=== PATIENT | male | born 1960 | race African-American/Black ===

== ENCOUNTER 2019-08-15 11:59 | Inpatient (IN) ==
[2019-08-15 13:22] LABS: BASO# 0.02 X1000 (0.0-0.2); BASO% 0.1 % (0.0-0.8); EOS# 0.12 X1000 (0.0-0.7); EOS% 0.8 % (0.0-10.0); HEMATOCRIT 34.5 % (42.0-52.0); HEMOGLOBIN 10.1 g/dL (14.0-18.0); IMM GRAN# 0.02 X1000 (0.0-0.04); IMM GRAN% 0.1 % (0.0-0.5); LYMPH# 1.13 X1000 (1.2-3.4); LYMPH% 7.9 % (20.5-51.1); MCH 26.2 PG (27-31); MCHC 29.3 g/dL (33-37); MCV 89.4 FL (81-99); MONO# 0.97 X1000 (0.11-0.59); MONO% 6.8 % (1.7-9.3); NEUT# 11.98 X1000 (1.4-6.5); NEUT% 84.3 % (42.2-75.2); PLT 427 X1000 (130-400); RBC 3.86 XMIL (4.7-6.1); RDW 14.7 % (11.5-14.5); WBC 14.24 X1000 (4.8-10.8)
[2019-08-15 13:57] LABS: ALB/GLOB RATIO 0.7; ALBUMIN 3.1 g/dL (3.5-5.0); CALCIUM 9.7 mg/dL (8.8-10.2); POTASSIUM 4.2 mmol/L (3.5-5.1); TOTAL BILIRUBIN 0.37 mg/dL (0.20-1.00); TOTAL PROTEIN 7.4 g/dL (6.3-8.3)
[2019-08-15 14:01] LABS: CREATININE 7.5 mg/dL (0.7-1.2)
[2019-08-15 14:24] LABS: SED RATE 118 mm/hr (0-15)
[2019-08-15] MEDS ORDERED: ZOSYN 2.25 GM in NS 50 ML IV ONE (14:35)
--- NOTE | 2019-08-15 14:39 | PROVIDER DOCUMENTATION ---
This chart was entered by Yolanda Rawls Scribe, acting as scribe for Mayte Swift MD. HPI-General Adult - General Chief Complaint: Extremity Injury Stated Complaint: NECROTIC TOE Time Seen by Provider: 08/15/19 12:01 Source: patient, old records Allergies/Adverse Reactions: Patient Allergies Allergy/AdvReac Type Severity Reaction Status Date / Time ciprofloxacin [From Cipro] AdvReac NAUSEA/VOMI Verified 08/15/19 12:54 TING Home Medications: Home Medication List Medication Instructions Recorded Confirmed Last Taken Type Tramadol/APAP [Ultracet 1 ea PO Q12HR PRN #10 tab 10/30/18 Unknown Rx 37.5MG/325Mg] Gabapentin [Neurontin] 100 mg PO BID PRN #10 cap 11/23/18 Unknown Rx Gabapentin [Neurontin] 100 mg PO BID #60 cap 12/07/18 08/15/19 Unknown Rx Sulfamethoxazole/Trimethoprim 1 ea PO BID #14 tab 08/08/19 Unknown Rx [Bactrim Ds Tablet] - History of Present Illness -Gen Adult Nature of Presenting Problems: 59 y/o male presents to ED with 5th digit of L foot pain onset 6 weeks ago. 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 Pt states several people have dropped him or hit his toe while carrying him over the past few weeks. Pt reports his toe was crushed recently and it is not healing. Pt states home health is involved. Pt denies any other symptoms. Pt is alert and oriented. [facility] Location of Pain/Injury: reports: other (5th digit of L foot) Pain Radiation: reports: no radiation Quality of Pain: reports: aching Severity: reports: moderate Onset/Duration: reports: other (6 weeks ago) Timing: reports: still present Context/Activities at Onset: reports: none Modifying Factors: improves with: nothing Associated Symptoms: reports: other (necrosis of 5th digit of L foot) Similar Symptoms Previously?: No Recently seen or treated by another doctor?: Yes (ED) Review of Systems - Adult - REVIEW OF SYSTEMS - ADULT Constitutional: denies: chills, fever Eyes: reports: no symptoms reported Ears, Nose, Mouth & Throat: reports: no symptoms reported Cardiovascular: denies: chest pain, palpitations Respiratory: denies: cough, shortness of breath Gastrointestinal: reports: no symptoms reported Genitourinary: reports: no symptoms reported Musculoskeletal: reports: other (necrosis of 5th digit of L foot). denies: back pain, joint pain Integumentary: reports: no symptoms reported Neurological: reports: no symptoms reported Psychiatric: reports: no symptoms reported Endocrine: reports: no symptoms reported Hematologic/Lymphatic: reports: no symptoms reported Allergic/Immunologic: reports: no symptoms reported All Other Systems: Reviewed and Negative Past History - Adult - PAST MEDICAL HISTORY-ADULT Review of Records: reports: Old Records Reviewed, Nursing Assessment Review, Medications Reviewed Major Childhood Illnesses: reports: denies history Cardiovascular: reports: cardiac disease, CHF, HTN, pericardial disease Respiratory: reports: denies history Gastrointestinal: reports: denies history Obstetrical/Gynecological: reports: denies history Genitourinary: reports: dialysis, kidney disease Musculoskeletal: reports: denies history Neurological: reports: denies history Endocrine/Immune: reports: Diabetes Other Conditions: reports: denies history - PRIOR SURGERIES/PROCEDURES Surgical/Procedure History: reports: orthopedic (extremity) (R BKA), other (kidney transplant; AV grafts; pericardial window) - IMMUNIZATION STATUS Childhood Immunizations: See Nurse Assessment Flu Vaccine: See Nurse Assessment - FAMILY HISTORY Family History: reviewed, not pertinent - SOCIAL HISTORY Smoking: non-smoker Substance Use: none/never Alcohol Use Frequency: never Living Situation: family Physical Exam-General - PHYSICAL EXAM-ADULT Initial Vital Signs Reviewed: Yes - CONSTITUTIONAL General Appearance: appears well, alert, no apparent distress, other (chronically ill appearing) - EYES Eyes: PERRL/EOMI - HEAD, EARS, NOSE, MOUTH & THROAT HENMT: normocephalic/atraumatic - NECK Neck: non-tender, full range of motion - RESPIRATORY Respiratory: chest non-tender, lungs clear, normal breath sounds, no respiratory distress, no accessory muscle use - CARDIOVASCULAR Cardiovascular: regular rate, rhythm, no murmur - GASTROINTESTINAL (ABDOMEN) Abdominal Exam: normal bowel sounds, non tender, soft - MUSCULOSKELETAL Back Exam: normal inspection, no vertebral tenderness Extremity: other (R BKA) - SKIN Integumentary: normal color, warm/dry, other (wound to L lateral heel- pt states it is improving; necrotic 5th digit of L foot; wounds are foul-smelling) - NEUROLOGIC Neurologic: grossly normal - PSYCHIATRIC Psych/Mental Status: normal mood/affect, normal thought content, normal thought process, oriented x 3 Progress - PLAN OF CARE/RESULTS Progress/Plan/Lab Results: Vital Signs - 8 hr 08/15/19 12:12 Temperature 99.7 F H Pulse Rate 68 Respiratory Rate 18 Blood Pressure 182/82 O2 Sat by Pulse Oximetry 100 Orders Category Date Time Status FOOT 2 VIEWS LEFT [RAD] Stat Exams 08/15/19 12:31 Ordered BLOOD CULTURE [BLDCUL] Stat Lab 08/15/19 12:46 Ordered CBC WITH ELECTRONIC DIFF [HEME] Stat Lab 08/15/19 12:46 Results COMPREHENSIVE METABOLIC PANEL [CHEM] Stat Lab 08/15/19 12:46 Received CRP HIGH SENSITIVITY Stat Lab 08/15/19 12:46 Received LACTATE, PLASMA [CHEM] Stat Lab 08/15/19 12:46 Received SED RATE [HEME] Stat Lab 08/15/19 12:46 Results Pt was seen in ED on 08/08/19 and had L foot x-ray. Report is below. [facility] - [address] [place], [place] [id number] [facility] - [address] [place] [address] Department of Imaging Patient: CLINT MARIE ADM Date: 08/08/19 MR#: [id number] : 1960 ADM Status: PRE ER Age/Sex: 59/M Room/Bed: Loc: ED Ordering Physician: Vivek Maynard Family Physician: None,PCP Reason for Procedure: injury to lateral side Signed FOOT COMPLETE LEFT - 08/08/2019 INDICATION: injury to lateral side TECHNIQUE: Three views COMPARISON: None FINDINGS: Bones are intact and normally aligned. There are moderate degenerative heel spurs. There is extremely severe peripheral arterial disease, with vascular calcification of all the arteries of the ankle and foot. IMPRESSION: No acute injury. Electronically signed by Marcio Frazier 08/08/2019 3:15 PM 08/08/19 4731 Interpreting Physician: Marcio Frazier MD Dictated Date/Time: 08/08/19 4857 cc: Vivek Maynard; None,PCP Laboratory Tests 08/15/19 08/15/19 08/15/19 12:46 12:46 12:46 WBC 14.24 H RBC 3.86 L Hgb 10.1 L Hct 34.5 L MCV 89.4 MCH 26.2 L MCHC 29.3 L RDW Std Deviation 14.7 H Plt Count 427 H MPV 9.0 Immature Gran % (Auto) 0.1 Neut % (Auto) 84.3 H Lymph % (Auto) 7.9 L [place] % (Auto) 6.8 Eos % (Auto) 0.8 Baso % (Auto) 0.1 Immature Gran # (Auto) 0.02 Neut # (Auto) 11.98 H Lymph # (Auto) 1.13 L [place] # (Auto) 0.97 H Eos # (Auto) 0.12 Baso # (Auto) 0.02 ESR 118 H Sodium 137 Potassium 4.2 Chloride 92 L Carbon Dioxide 26 Anion Gap 19 BUN 30 H Creatinine 7.5 H Estimated GFR/1.73 m2 9 BUN/Creatinine Ratio 4 Glucose 79 Calculated Osmolality 279 Calcium 9.7 Total Bilirubin 0.37 AST 24 ALT 16 Alkaline Phosphatase 102 C-React Prot High Sens > 10.000 Total Protein 7.4 Albumin 3.1 L Globulin 4.3 Albumin/Globulin Ratio 0.7 Plasma Lactate 08/15/19 12:46 WBC RBC Hgb Hct MCV MCH MCHC RDW Std Deviation Plt Count MPV Immature Gran % (Auto) Neut % (Auto) Lymph % (Auto) [place] % (Auto) Eos % (Auto) Baso % (Auto) Immature Gran # (Auto) Neut # (Auto) Lymph # (Auto) [place] # (Auto) Eos # (Auto) Baso # (Auto) ESR Sodium Potassium Chloride Carbon Dioxide Anion Gap BUN Creatinine Estimated GFR/1.73 m2 BUN/Creatinine Ratio Glucose Calculated Osmolality Calcium Total Bilirubin AST ALT Alkaline Phosphatase C-React Prot High Sens Total Protein Albumin Globulin Albumin/Globulin Ratio Plasma Lactate 1.2 Patient seen in the ED just about 1 week ago for similar complaints. Foot XR negative for osteo at that time. WBC 14k and CRP >10k. Sed pending and blood cultures pending. He has a poor living situation and likely needs placement. Spoke to [place] transfer center who is on diversion. Spoke to hospitalist here who accepted patient for admission. Wanted Dr John murillo to decide on antibiotics. Dr Lopez paged. Further orders to be placed by their team. Result Diagrams: 08/15/19 12:46 08/15/19 12:46 - CONSULTS/PCP/HOSPITALIST Notification #1 *Consult/PCP/Hospitalist*: YOVANNY Corrales for hospitalist Time Discussed: 14:34 Reason/Comments: Necrosis of L 5th toe Consult Disposition: Admit #2 Consult: [place] Time Discussed: 14:15 (On diversion) #3 Consult: Dr. Dwyer Time Discussed: 14:51 Consult Disposition: other (Recommends zosyn 3.375g q12h, and Vanc 1g with dialysis, first dose now.) Departure - Departure Date of Disposition Decision: 08/15/19 Time of Disposition Decision: 14:35 DIAGNOSIS: Necrotic toes, Chronic ulcer of left heel, ESRD (end stage renal disease) Disposition: ADMITTED INPATIENT 09 Certified Medical Emergency: Emergent Condition: Stable Referrals and Follow-Ups: None,PCP [Primary Care Provider] - - Critical Care Note This patient required my direct & personal management of CC.: No Attestation - Physician/ SONA Attestation Patient care was provided by Advanced Practice Provider:: No The physician spent face to face time with patient:: Yes Advanced Practice Provider documentation review:: Supervising physician onsite and consulted in the evaluation and care of this patient. The physician did have a face to face encounter with the patient. This chart was documented by the indicated scribe, (Yolanda Rawls, Kaylyn) and accurately reflects the services I performed and decisions made by me, Mayte Swift MD, as attested by the provider's signature.
[2019-08-15] MEDS ORDERED: VANCOMYCIN 1 GM/NS 1 GM/250 ML IVPB IV SCH (15:00)
[2019-08-15] MEDS: ZOSYN 3.375 GM in NS 50 ML IV SCH (15:00)
--- NOTE | 2019-08-15 15:33 | Diag Imaging Result Doc PS360 ---
EXAM: FOOT COMPLETE LEFT 08/15/2019 HISTORY: necrotic toe, rule out osteo TECHNIQUE: Left foot three views COMMENT: There is an apparent ulcer at the tip of the fifth toe. There is no apparent cortical erosion or periosteal reaction. There is extensive arteriosclerosis. There has been no apparent change in the regional skeleton since 08/08/2019 although the ulcer was not previously demonstrated. IMPRESSION: No definite evidence of osteomyelitis. Electronically signed by Duane Barber 08/15/2019 3:30 PM
--- NOTE | 2019-08-15 15:35 | Diag Imaging Result Doc PS360 ---
EXAM: CHEST-PORTABLE 08/15/2019 HISTORY: WBC 14k TECHNIQUE: AP portable upright at 1459 COMMENT: There is no evidence of acute cardiac or pulmonary disease. The heart size is smaller in appearance than on 11/22/2018. IMPRESSION: No acute disease. Electronically signed by Duane Barber 08/15/2019 3:32 PM
--- NOTE | 2019-08-15 17:00 | HISTORY AND PHYSICAL ---
HISTORY OF PRESENT ILLNESS: Mr. Masterson is a 59-year-old, black male. He lives, I think in [place]. He lives in an upstairs apartment. He has people who help him. Apparently, about four months ago, he said when he was being carried upstairs, he hit his foot and then re-injured it again about a month ago. It is the left foot, the 4th and 5th toes, and now there is an anaerobic smell, swelling over the anterior foot, and it is starting to have some drainage. PAST MEDICAL HISTORY: 1. Right [id number] amputation. I think that was for a foot injury, peripheral vascular disease. 2. He is on dialysis for end-stage renal disease, chronic kidney disease stage 5D. 3. History of hypertension. 4. Hypercholesterolemia. ALLERGIES: Ciprofloxacin. HOME MEDICATIONS: He takes medication for peripheral neuropathy, so he is on Neurontin 100 mg b.i.d. He has been on some Bactrim 1 twice a day and he takes Ultracet for pain. FAMILY HISTORY: Positive for peripheral vascular disease and hypertension. SOCIAL HISTORY: No illicit drugs. He reports he does not drink much alcohol and is not smoking at this time. He has a past medical history of smoking. REVIEW OF SYSTEMS: He is not aware of any weight gain or loss. No fever or chills.HEENT: Unremarkable. Respiratory: No increased work of breathing or dyspnea. Cardiovascular: No chest pain or tachy palpitation. Gastrointestinal: No change in bowel or bladder habits. Musculoskeletal/Neurologic: No significant complaints. PHYSICAL EXAMINATION: VITAL SIGNS: Temperature 99.7 degrees, pulse 68, respirations 18, blood pressure 182/82. Weight 120 pounds, height 5 feet 7 inches. EYES: Pupils are equal and round. LUNGS: Clear in all lung regalado. CARDIOVASCULAR: Regular rhythm and rate without murmur or S3. ABDOMEN: Soft. SKIN: Warm and dry. EXTREMITIES: No sign of pedal edema. Status post right [id number] amputation. Left foot 4th and 5th toes and inner digital spaces, as well with swelling and appears to have crusted drainage on the anterior portion of the foot. The general dorsum of the foot is swollen. ASSESSMENT AND PLAN: 1. Foot ulcer with peripheral vascular disease. We will get Surgery to evaluate and get Wound Care to help. We are going to start him on broad-spectrum antibiotics. We will see if they can culture the wound and send it for culture, anaerobic and Gram stain. We are going to start him on Zosyn and vancomycin to cover for gram-positive, gram-negative, and some anaerobe coverage. 2. Stage 5D chronic kidney disease, on dialysis on Tuesdays, , and Saturdays. Dr. Lopez will be involved. His volume status looks good. His electrolytes and acid-base status look good. 3. His blood counts look good. He has a mild normocytic anemia. Hematocrit was 34, hemoglobin 10. Nutrition looks good. cc: Caesar Locke MD
[2019-08-15] MEDS: NEURONTIN PO SCH (20:25)
[2019-08-15] MEDS: HEPARIN SUBQ SCH (20:25)
[2019-08-15] MEDS: TYLENOL PO PRN (23:49)
[2019-08-16] MEDS: ZOSYN 3.375 GM in NS 50 ML IV SCH ×2 (03:28→18:14)
[2019-08-16 07:47] LABS: BASO# 0.04 X1000 (0.0-0.2); BASO% 0.4 % (0.0-0.8); EOS# 0.17 X1000 (0.0-0.7); EOS% 1.5 % (0.0-10.0); HEMATOCRIT 35.7 % (42.0-52.0); HEMOGLOBIN 10.2 g/dL (14.0-18.0); IMM GRAN# 0.02 X1000 (0.0-0.04); IMM GRAN% 0.2 % (0.0-0.5); LYMPH# 1.03 X1000 (1.2-3.4); LYMPH% 9.4 % (20.5-51.1); MCHC 28.6 g/dL (33-37); MCV 91.1 FL (81-99); MONO# 0.74 X1000 (0.11-0.59); MONO% 6.7 % (1.7-9.3); MPV 8.9 FL (7.4-10.4); NEUT# 8.98 X1000 (1.4-6.5); NEUT% 81.8 % (42.2-75.2); PLT 408 X1000 (130-400); RBC 3.92 XMIL (4.7-6.1); RDW 14.9 % (11.5-14.5); WBC 10.98 X1000 (4.8-10.8)
[2019-08-16 08:15] LABS: ALB/GLOB RATIO 0.8; ALBUMIN 3.2 g/dL (3.5-5.0); CALCIUM 9.5 mg/dL (8.8-10.2); TOTAL BILIRUBIN 0.49 mg/dL (0.20-1.00); TOTAL PROTEIN 7.4 g/dL (6.3-8.3)
[2019-08-16 08:20] LABS: CREATININE 8.9 mg/dL (0.7-1.2)
[2019-08-16 08:35] LABS: FREE T4 1.49 ng/dL (0.93-1.70); TSH 1.08 uIUmL (0.27-4.20)
[2019-08-16 08:43] LABS: HYPOCHROM 1+; LYMPHS 10 % (21-51); SEGS 90 % (42-75)
[2019-08-16] MEDS ORDERED: HEPARIN IV PRN (09:28)
[2019-08-16] MEDS ORDERED: NS 2,000 ML MISC PRN (09:28)
[2019-08-16] MEDS ORDERED: TIGHT: 0.2 ML/HR FOR DIALYSIS MISC PRN (09:28)
[2019-08-16] MEDS: HEPARIN SUBQ SCH ×2 (10:12→20:36)
[2019-08-16] MEDS: NEURONTIN PO SCH ×2 (10:12→20:36)
[2019-08-16] MEDS: TYLENOL PO PRN (11:00)
--- NOTE | 2019-08-16 13:18 | PROGRESS NOTE ---
DATE: 08/16/2019 Mr. Masterson is mainly complaining of kind of muscle pain on the left leg posterior hamstring, but he had a pretty good night. There is still an anaerobic smell he can smell from his foot and the drainage ulceration, skin ulceration in the left foot dorsum of his foot, ulcer between the 4th and 5th toe. OBJECTIVE: Temperature is 98 degrees, pulse is 60, respirations 15, blood pressure 140/56. Pupils are equal and round. Lungs are clear in all lung regalado. Cardiovascular regular rate without murmur or S3. Abdomen is soft. Skin is warm and dry. His foot x-ray, no definite evidence of osteomyelitis. ASSESSMENT AND PLAN: 1. Foot ulcer, peripheral vascular disease. Continue his Zosyn and vancomycin. Cultures pending. 2. Stage 5D chronic kidney disease. Continue dialysis Sunday, , and Sunday. His volume status looks good. We will give him his vancomycin after dialysis. 3. Mild normocytic anemia. Electrolytes unremarkable. Acid-base status good. I am going to try a muscle relaxer, see if it helps that left posterior hamstring. cc: Caesar Locke MD
[2019-08-16] MEDS: ROBAXIN PO SCH ×2 (13:46→18:14)
--- NOTE | 2019-08-16 15:29 | NEPHROLOGY CONSULTATION ---
DATE: 08/16/2019 REASON FOR CONSULTATION: CKD 5D. Evaluate and treat. HISTORY OF PRESENT ILLNESS: Mr. Masterson is a 59-year-old, man with longstanding dialysis dependent CKD. He also has peripheral vascular disease, hypertension, peripheral neuropathy. He dialyzes Sunday, , Sunday at the clinic in [place]. He lives in [place]. He has undergone right AKA in the past and he lives in a 2nd floor apartment where he required assistance to get up and down the stairs in order to go to dialysis. He states he has had at least 2 episodes in the recent past where he struck his foot against the wall as he is going up and down the stairs with the assistance of friends. He has pain in the left 5th toe and also ischemic appearance with darkening and desiccation in the tissue. He came to the emergency room because of worsening pain, malodorous discharge. No chills, fever, sweats, night sweats etc. He had his routine dialysis on . PAST MEDICAL HISTORY: As above. HOME MEDICATIONS: Include Ultracef, gabapentin, Bactrim, amlodipine, aspirin, atenolol, atorvastatin, pantoprazole, quetiapine ALLERGIES: Ciprofloxacin. SOCIAL HISTORY: As above. FAMILY HISTORY AND REVIEW OF SYSTEMS: Noncontributory. PHYSICAL EXAMINATION: Vital Signs: Blood pressure 140/56, heart rate 63, respirations 15, afebrile. General: Chronically ill-appearing man who appears older than stated age. No acute distress. Skin: Warm and dry. HEENT: Conjunctivae are pink. Pupils are equal. Oropharynx is clear. Neck: Supple. Neck veins are not distended. Heart: PMI is enlarged. Auscultation demonstrates a regular rhythm. No gallops or murmurs. Lungs: Have equal excursion, equal breath sounds. No crackles or wheezes. Abdomen: Soft, nontender. Bowel sounds present. Extremities: No edema, clubbing or cyanosis. Left 5th toe is mummified but there is purulent malodorous drainage between the 4th and 5th toe. He also has fluctuant bullae around the proximal and medial aspect of the left 1st toenail. IMPRESSION: 1. Chronic kidney disease 5D. We will perform his routine hemodialysis today. A 3 K bath. We will use his outpatient dry weight. 2. Electrolytes/acid base/anemia./blood pressure all in target. 3. Foot infection. Vancomycin and Zosyn. Dosing is appropriate. cc: Burke Lopez MD MTDD
--- NOTE | 2019-08-16 16:40 | GENERAL SURGERY CONSULTATION ---
DATE: 08/16/2019 REASON FOR CONSULTATION: Foot ulcer. SURGEON CONSULT: Jeff Shannon. REQUESTING PHYSICIAN: Dr. Locke. HISTORY OF PRESENT ILLNESS: This is a 59-year-old male with known peripheral arterial disease status post right AKA who reports falling and hitting his left foot a few weeks ago. He has had progressive swelling, discoloration and dryness of his left 5th toe with foul odor and drainage. He presented to the emergency room with these complaints. No exacerbating or relieving factors. No fever, chills, or other systemic complaints. PAST MEDICAL HISTORY: Peripheral arterial disease, end-stage renal disease, hypertension, hypercholesterolemia. PAST SURGICAL HISTORY: Right AKA, right arm and left arm fistula placement. ALLERGIES: Ciprofloxacin. HOME MEDICATIONS: Neurontin, Bactrim, Ultracet. FAMILY HISTORY: Reviewed and positive for peripheral arterial disease and hypertension. SOCIAL HISTORY: No illicit drug use. He does drink alcohol but not heavily. He denies smoking but he does have a history of smoking. REVIEW OF SYSTEMS: Ten systems reviewed and negative except as noted above. PHYSICAL EXAMINATION: Vital Signs: Temperature 98 degrees, pulse 63, respirations 15, blood pressure 140/56, O2 saturation 100%. General: Chronically ill-appearing male who looks older than stated age in no acute distress. HEENT: Normocephalic, atraumatic. Extraocular muscles intact. Pupils equal, round, reactive to light. Sclerae anicteric. Moist mucous membranes. Neck: Supple. No thyromegaly. CV: Regular rate and rhythm. Respiratory: Bilateral breath sounds. No work of breathing. GI: Soft, nontender, nondistended. No organomegaly or mass. Extremities: He has a right upper arm AV fistula with large pseudoaneurysms. He has a left upper arm AV fistula with a thrill. His right AKA is intact. His left foot, however, has swelling and dry gangrene of the 5th toe with some open wounds and fluctuance around the base of the metatarsophalangeal joint. There is some odor as well. I cannot palpate pedal pulses. IMAGING: Foot x-ray revealed no definite osteomyelitis but there is extensive arterial sclerosis. ASSESSMENT AND PLAN: A 59-year-old male with peripheral vascular disease and nonhealing left 5th toe ulcer. He now has a foot infection. I agree with Zosyn and vancomycin. Cultures are pending. We will get a vascular workup to determine our surgical approach. cc: Jeff Shannon MD
[2019-08-16] MEDS ORDERED: VANCOMYCIN 1 GM/NS 1 GM/250 ML IVPB IV ONE (17:00)
[2019-08-16] MEDS: ULTRACET 37.5MG/325MG PO PRN (20:56)
[2019-08-17] MEDS: EMLA CREAM TOP PRN (01:17)
[2019-08-17] MEDS: ZOSYN 3.375 GM in NS 50 ML IV SCH ×2 (02:47→17:06)
[2019-08-17 05:43] LABS: BASO# 0.04 X1000 (0.0-0.2); BASO% 0.3 % (0.0-0.8); EOS# 0.26 X1000 (0.0-0.7); EOS% 2.1 % (0.0-10.0); HEMATOCRIT 32.3 % (42.0-52.0); HEMOGLOBIN 9.4 g/dL (14.0-18.0); IMM GRAN# 0.02 X1000 (0.0-0.04); IMM GRAN% 0.2 % (0.0-0.5); LYMPH# 1.05 X1000 (1.2-3.4); LYMPH% 8.3 % (20.5-51.1); MCH 26.4 PG (27-31); MCHC 29.1 g/dL (33-37); MCV 90.7 FL (81-99); MONO# 1.15 X1000 (0.11-0.59); MONO% 9.1 % (1.7-9.3); MPV 8.8 FL (7.4-10.4); NEUT# 10.16 X1000 (1.4-6.5); PLT 434 X1000 (130-400); RBC 3.56 XMIL (4.7-6.1); RDW 14.9 % (11.5-14.5); WBC 12.68 X1000 (4.8-10.8)
[2019-08-17 06:39] LABS: ALB/GLOB RATIO 0.7; ALBUMIN 3.1 g/dL (3.5-5.0); CALCIUM 9.2 mg/dL (8.8-10.2); MAGNESIUM 1.9 mg/dL (1.5-2.7); POTASSIUM 3.7 mmol/L (3.5-5.1); TOTAL BILIRUBIN 0.44 mg/dL (0.20-1.00); TOTAL PROTEIN 7.3 g/dL (6.3-8.3)
[2019-08-17 06:54] LABS: CREATININE 5.5 mg/dL (0.7-1.2)
[2019-08-17] MEDS: ULTRACET 37.5MG/325MG PO PRN ×2 (09:37→22:10)
[2019-08-17] MEDS: NEURONTIN PO SCH ×2 (09:37→22:09)
[2019-08-17] MEDS: HEPARIN SUBQ SCH ×2 (09:38→22:09)
[2019-08-17] MEDS: ROBAXIN PO SCH ×3 (09:38→17:06)
--- NOTE | 2019-08-17 10:06 | GENERAL SURGERY PROGRESS NOTE ---
DATE: 08/17/2019 SUBJECTIVE: The patient has no new complaints overnight. OBJECTIVE: Vital Signs: He is afebrile. Vital signs are stable. General: He is awake, alert, and oriented x3. No acute distress. Extremities: His left foot remains the same with dry gangrene of the 5th toe and some foul drainage around the 4th and 5th toe base. ASSESSMENT AND PLAN: A 59-year-old male with severe peripheral arterial disease and now infected foot wound. There is dry gangrene of the 5th toe. We are going to get a lower extremity arterial study tomorrow and possibly CT angiogram. However, I suspect he may just need another BKA or AKA. We will discuss with Dr. Chong tomorrow. cc: Jeff Shannon MD
--- NOTE | 2019-08-17 13:18 | PROGRESS NOTE ---
DATE: 08/17/2019 SUBJECTIVE: Mr. Masterson is feeling better. His foot feels a little bit better. Will put him back on his home medications and his eyedrops. OBJECTIVE: Vital Signs: Temperature 97.7 degrees, pulse 65, respirations 15, blood pressure 141/57. HEENT: Pupils are equal and round. Lungs: Clear in all lung regalado. Cardiovascular: Regular rhythm and rate without murmur or S3. Abdomen: Soft. Skin: Warm and dry. ASSESSMENT AND PLAN: 1. He has peripheral artery disease, now infected foot wound, gangrene of the fifth toe. We will get a lower extremity arterial study, possible CT angiogram tomorrow, and see what he needs. He may need a below-knee amputation or above-knee amputation. 2. Chronic kidney disease stage 5D. Continue hemodialysis. I think he is Tuesdays, , and Saturdays. 3. Electrolytes and acid base look good. 4. Anemia, stable. He has a mild normocytic anemia. 5. Nutrition appears good. Good oral intake. REVIEW OF ORDERS: I do not see any change. He is on vancomycin and Zosyn. LABORATORY DATA: Today, sodium 135, potassium 3.7, chloride 93, BUN 20, creatinine 5.5. CBC: White count 12,680, hematocrit 32, hemoglobin 9.4, platelet count 434,000. cc: Caesar Locke MD
[2019-08-17] MEDS: ALPHAGAN 0.2% OPHTH SOLN BOTH EYES SCH ×2 (15:04→17:06)
[2019-08-17] MEDS: DEPAKOTE PO SCH ×2 (17:06→22:12)
[2019-08-17] MEDS ORDERED: NEURONTIN PO SCH (21:00)
[2019-08-17] MEDS: SEROQUEL PO PRN (22:09)
[2019-08-18] MEDS ORDERED: CALMOSEPTINE OINTMENT TOP PRN (00:05)
[2019-08-18] MEDS: ZOSYN 3.375 GM in NS 50 ML IV SCH ×2 (02:39→15:44)
[2019-08-18 06:21] LABS: BASO# 0.04 X1000 (0.0-0.2); BASO% 0.4 % (0.0-0.8); EOS% 2.7 % (0.0-10.0); HEMOGLOBIN 8.6 g/dL (14.0-18.0); IMM GRAN# 0.05 X1000 (0.0-0.04); IMM GRAN% 0.4 % (0.0-0.5); LYMPH# 1.46 X1000 (1.2-3.4); LYMPH% 13.1 % (20.5-51.1); MCH 26.1 PG (27-31); MCHC 28.7 g/dL (33-37); MCV 90.9 FL (81-99); MONO% 9.9 % (1.7-9.3); MPV 8.7 FL (7.4-10.4); NEUT# 8.19 X1000 (1.4-6.5); NEUT% 73.5 % (42.2-75.2); PLT 444 X1000 (130-400); RDW 14.9 % (11.5-14.5); WBC 11.14 X1000 (4.8-10.8)
[2019-08-18 06:48] LABS: ALB/GLOB RATIO 0.8; ALBUMIN 2.9 g/dL (3.5-5.0); CALCIUM 9.2 mg/dL (8.8-10.2); MAGNESIUM 1.8 mg/dL (1.5-2.7); TOTAL BILIRUBIN 0.37 mg/dL (0.20-1.00); TOTAL PROTEIN 6.7 g/dL (6.3-8.3)
[2019-08-18 07:02] LABS: CREATININE 7.9 mg/dL (0.7-1.2)
[2019-08-18] MEDS: ALPHAGAN 0.2% OPHTH SOLN BOTH EYES SCH ×2 (09:09→21:56)
[2019-08-18] MEDS: NEURONTIN PO SCH ×2 (09:09→21:57)
[2019-08-18] MEDS: ROBAXIN PO SCH ×3 (09:10→16:20)
[2019-08-18] MEDS: HEPARIN SUBQ SCH ×2 (09:10→21:58)
[2019-08-18] MEDS: DEPAKOTE PO SCH ×4 (09:10→21:56)
[2019-08-18 09:55] LABS: HEPATITIS PROFILE ACUTE SEE COMMENTS
--- NOTE | 2019-08-18 13:55 | NEPHROLOGY PROGRESS NOTE ---
DATE: 08/18/2019 Date Seen: 08/18/2019 Time Seen: 07:30 SUBJECTIVE: Mr. Masterson is resting quietly in bed. Head of the bed is slightly elevated. States that he has dry eyes and has requested some saline from the nurses. OBJECTIVE: Vital Signs: Temperature 98.4 degrees blood pressure 109/41, heart rate 60, respirations 18. He is on room air. Last recorded saturation 100%. He has had 580 in he has had 0 recorded out. LABORATORY DATA: Sodium is 141, potassium 4, chloride 95, CO2 26, BUN 28, creatinine 7.9, glucose is 87. His anion gap is 20. His calcium 9.2, albumin 2.9. White count 11.14, hemoglobin 8.6, hematocrit 30, platelet count 444,000. The patient has positive blood cultures of gram-positive cocci with gram-negative rods. First culture results as an enterococci faecalis with Morganella staph Morgagni This is to the wound. PHYSICAL EXAMINATION: General: This is a 59-year-old male. He is sitting up on the side of the bed. He is currently denying any chest pain no increased work of breathing. HEENT: Normocephalic, atraumatic. Conjunctiva is pale pink. He has KRISTEN. Mucous membranes are dry. Neck: Supple. Trachea midline. He has positive JVD. Cardiovascular: He is regular rate and rhythm. PMI slightly enlarged. No murmur or gallop. Lungs: Clear to auscultation bilaterally. Equal excursion on room air. Abdomen: Soft, nontender, positive bowel sounds. Genitourinary: Not inspected. Minimal void with dialysis assist. Extremities: He has a right AKA with a left 5th toe that is currently draining purulent drainage between the 4th in the 5th toe. Questionable bullae is draining out on the left 1st toenail. No edema present. Neurological: Alert and oriented x3. ASSESSMENT AND PLAN: 1. Chronic kidney disease stage 5D. The patient is due for his hemodialysis treatment in the a.m. He dialyzes on Sunday, , Sunday. No indications for intervention today. Plan for dialysis in the a.m. 2. Electrolytes and acid-base balance. These are acceptable. 3. Anemia this is low but stable. 4. Foot infection. He is currently on vancomycin and Zosyn with renal dosing. Followed by the primary care and surgeons. I would like to thank you for allowing us to follow with this patient. Dictated by YOVANNY Reardon for Burke Lopez MD Face to face encounter, data reviewed, discussed with Ruperto Chua on 08/18/19. I agree with the above assessment and plan of care. cc: YOVANNY Reardon MD [facility]
[2019-08-18] MEDS ORDERED: SEROQUEL PO PRN (17:34)
--- NOTE | 2019-08-18 17:56 | PROGRESS NOTE ---
DATE: 08/18/2019 SUBJECTIVE: Mr. Masterson is feeling better. He would like to get his eye drops restarted, but he is eating well. He remains afebrile. OBJECTIVE: Vital signs: Temperature 98.6 degrees, pulse 70, respirations 16, blood pressure 160/71. HEENT: Pupils are equal and round. Lungs: Clear in all lung regalado. Cardiovascular: Regular rhythm and rate without murmur or S3. Abdomen: Soft. Skin: Warm and dry. LABORATORY: I reviewed lab from yesterday. ASSESSMENT AND PLAN: 1. Chronic kidney disease stage 5D. Getting his routine hemodialysis. His volume status, electrolytes, and acid base look good. Anemia is low but stable. 2. Foot infection. We will get vascular studies. Currently he is on vancomycin and Zosyn. We will see if we can get him back on his eye drops. 3. Reviewed his orders. I do not see any other change. cc: Caesar Locke MD
[2019-08-18] MEDS ORDERED: ALPHAGAN 0.2% OPHTH SOLN OPH SCH (21:00)
[2019-08-18] MEDS: LIPITOR PO SCH (21:56)
[2019-08-18] MEDS: ASPIRIN PO SCH (21:57)
[2019-08-18] MEDS: TENORMIN PO SCH (21:57)
[2019-08-18] MEDS: PROTONIX PO SCH (21:57)
--- NOTE | 2019-08-19 01:35 | GENERAL SURGERY PROGRESS NOTE ---
DATE: 08/18/2019 SUBJECTIVE: The patient feels better. OBJECTIVE: He is afebrile. Vital signs are stable.General: He is awake, alert, oriented x3. No acute distress. He is sitting up eating supper. Extremities: The left foot was examined, the 5th toe remains desiccated. There is some fluctuance around the metatarsophalangeal joint. There is a proximal lateral left foot dry ulcer. IMAGING: The lower extremity arterial study was reviewed, which shows very poor flow in the digital arteries; however, there is pulsatile flow down to the ankle. ABIs could not be obtained however due to elevated pressures diffusely in the left leg. 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 We will pursue CT angiogram of the aorta with runoff of the left leg tomorrow to look for any salvage procedures of this foot. cc: Jeff Shannon MD
[2019-08-19] MEDS: ZOSYN 3.375 GM in NS 50 ML IV SCH (02:54)
[2019-08-19 05:39] LABS: BASO# 0.05 X1000 (0.0-0.2); BASO% 0.4 % (0.0-0.8); EOS# 0.35 X1000 (0.0-0.7); EOS% 2.9 % (0.0-10.0); HEMATOCRIT 29.7 % (42.0-52.0); HEMOGLOBIN 8.7 g/dL (14.0-18.0); IMM GRAN# 0.04 X1000 (0.0-0.04); IMM GRAN% 0.3 % (0.0-0.5); LYMPH# 1.87 X1000 (1.2-3.4); LYMPH% 15.6 % (20.5-51.1); MCH 26.4 PG (27-31); MCHC 29.3 g/dL (33-37); MCV 90.3 FL (81-99); MONO# 0.94 X1000 (0.11-0.59); MONO% 7.9 % (1.7-9.3); MPV 8.5 FL (7.4-10.4); NEUT# 8.72 X1000 (1.4-6.5); NEUT% 72.9 % (42.2-75.2); PLT 475 X1000 (130-400); RBC 3.29 XMIL (4.7-6.1); RDW 14.9 % (11.5-14.5); WBC 11.97 X1000 (4.8-10.8)
[2019-08-19] MEDS ORDERED: HEPARIN IV PRN (06:08)
[2019-08-19] MEDS ORDERED: TIGHT: 0.2 ML/HR FOR DIALYSIS MISC PRN (06:08)
[2019-08-19] MEDS ORDERED: NS 2,000 ML MISC PRN (06:08)
[2019-08-19 07:08] LABS: ALB/GLOB RATIO 0.8; CALCIUM 8.9 mg/dL (8.8-10.2); MAGNESIUM 1.9 mg/dL (1.5-2.7); POTASSIUM 4.1 mmol/L (3.5-5.1); TOTAL BILIRUBIN 0.32 mg/dL (0.20-1.00); TOTAL PROTEIN 6.6 g/dL (6.3-8.3)
[2019-08-19 07:16] LABS: CREATININE 9.7 mg/dL (0.7-1.2)
[2019-08-19 07:51] LABS: BANDS 2 % (0-1); EOS 2 % (1-10); HYPOCHROM 1+; LYMPHS 6 % (21-51); MONO 6 % (1-9); SEGS 84 % (42-75)
[2019-08-19] MEDS: HEPARIN SUBQ SCH ×2 (10:00→21:37)
[2019-08-19] MEDS: ALPHAGAN 0.2% OPHTH SOLN BOTH EYES SCH ×2 (10:00→21:38)
[2019-08-19] MEDS: ROBAXIN PO SCH ×3 (10:00→17:52)
[2019-08-19] MEDS: NEURONTIN PO SCH ×2 (10:01→21:37)
[2019-08-19] MEDS: DEPAKOTE PO SCH ×4 (10:01→21:38)
--- NOTE | 2019-08-19 13:33 | VASCULAR LAB ---
PROCEDURE NAME: Arterial Unilateral Leg - 08/18/2019 REQUESTING PHYSICIAN: Dr. Shannon. AIRCRAFT MAINTENANCE MANAGER: Issa INDICATIONS: Left foot ulcer. FINDINGS: Segmental pressures are as follows: Right brachial greater than 250, left brachial not measured. Right leg is not measured secondary to above the knee amputation. Left side, proximal thigh greater than 250, distal thigh greater than 250, popliteal greater than 250, dorsalis pedis greater than 250, posterior tibial greater than 250, toe 22. Waveform analysis: Waveforms appear to be intact to the level of the ankle, but they are somewhat monophasic. There is essentially no waveform noted to the left toe. The patient's SIL not calculated and TBI not calculated. INTERPRETATION: Extensive peripheral vascular disease likely originating more proximally. If the patient has a left foot wound, he likely has poor potential for healing. The patient may benefit from CT angiography. cc: MD Jeff Yanez MD
--- NOTE | 2019-08-19 13:52 | PROGRESS NOTE ---
DATE: 08/19/2019 SUBJECTIVE: Mr. Masterson states his foot is throbbing, but overall feels a little better. He still has pretty strong anaerobic smell to it. No active drainage that I can appreciate. OBJECTIVE: Temperature 98.1 degrees, pulse 57, respirations 16, and blood pressure 129/35.HEENT: Pupils are equal and round. Lungs: Clear in all lung regalado. Cardiovascular: Regular rhythm and rate without murmur or S3. Abdomen: Soft. Skin: Warm and dry. ASSESSMENT AND PLAN: 1. Chronic kidney disease stage 5D. His volume status, electrolytes, and acid base look stable. Anemia is low but stable. 2. Foot infection. Plan to get vascular studies. Continue vancomycin and Zosyn. His wound cultures grew out Enterococcus and Morganella, and the Morganella is sensitive to cefepime. The Enterococcus is sensitive to vancomycin so I will probably change to cefepime and vancomycin. Notes also is sensitive to ceftriaxone so I will switch it to ceftriaxone. We will give 2 g IV q.24 hours. Continue vancomycin. Wait on vascular studies. cc: Caesar Locke MD
--- NOTE | 2019-08-19 14:26 | Diag Imaging Result Doc PS360 ---
EXAM: CT ANGIOGRAM AORTA W/RUNOFF 08/19/2019 HISTORY: severe PAD with left toe gangrene TECHNIQUE: This exam was performed using automated exposure control, adjustment of mA or kV according to patient size, and/or use of iterative reconstruction technique. COMMENT: 3-D MIPS were performed. There are no previous abdominal studies. Comparison is made with the thoracic study of 11/23/2018 where possible. There are platelike opacities in both lung bases which were also largely present at the time the previous study and are likely fibrotic in nature. There is extensive arteriosclerosis which may be related to secondary hyperparathyroidism. The left ventricle appears slightly distended. There is a small hiatal hernia. The aorta is not distended. There is apparent noncalcified plaque present in the superior mesenteric artery as well as dense ostial calcification. Both kidneys are atrophic and demonstrate multiple cysts consistent with acquired polycystic disease. There is no evidence of cholelithiasis. Some portions of the right common and external iliac arteries are partially obscured by beam hardening artifact from multiple surgical clips. Both common and external iliac arteries appear to be patent. There is dense calcific plaque with stenosis of the right common femoral artery. There is high-grade stenosis or occlusion in the distal superficial femoral and proximal popliteal arteries on the right. There has been amputation [id number] on the right side. On the left side, there is some narrowing of the superficial femoral artery proximally and dense calcification throughout most of its length. The popliteal artery is apparently patent with high-grade stenosis around image 564. There is also high-grade stenosis below this level at the level of image 588. At the level of the bifurcation of the tibioperoneal trunk is difficult to see the actual lumen of the vessels including the anterior tibial. There is fairly proximal occlusion of the posterior tibial artery. Patency of the peroneal and anterior tibial artery as it is not clear due to the dense calcification of vessel. IMPRESSION: 1. Stenosis of the proximal left superficial femoral artery. 2. Stenosis of the left popliteal artery. 3. Very poor distal runoff with dense calcification of the vessels. Electronically signed by Duane Barber 08/19/2019 2:24 PM
[2019-08-19] MEDS ORDERED: VANCOMYCIN 1 GM/NS 1 GM/250 ML IVPB IV ONE (16:00)
[2019-08-19] MEDS: ROCEPHIN 2 GM in NS 50 ML IV SCH (17:53)
[2019-08-19] MEDS: ULTRACET 37.5MG/325MG PO PRN (19:46)
--- NOTE | 2019-08-19 21:09 | PROVIDER PROGRESS NOTE ---
Progress Note Subjective: he is sitting up to the side of the bed eating breakfast. He complains of waxing and waning left foot pain that is controlled with PRN medication. Objective: vitals. Temperature 98.4, pulse 58, respirations 16, blood pressure 147/29, O2 sat 100% on room air. General: elderly -Chinese male sitting up to the side of the bed in no acute distress. HEENT: normocephalic, atraumatic, conjunctiva pale. Pupils equal and reactive. Mucous membranes moist. Trachea midline. Skin: warm and dry Neck: supple, no JVD observed Cardiovascular: S1, S2. Regular rate and rhythm no murmur gallop noted. Respiratory: diminished bilateral bases anteriorly Abdomen: soft, nontender, nondistended. Positive bowel sounds. : none inspected Extremities: right a.k.a. Dressing to the left foot in place with purulent drainage and a foul odor noted. Neurological: alert and oriented to person, place, and time. Labs: WBC 11.97, hemoglobin 8.7, hematocrit 29.7, platelet count 475, sodium 138, potassium 4.1, chloride 93, carbon dioxide 24, anion gap 21, BUN 36, creatinine 9.7. Intake 100, output 0 Impression: Chronic kidney disease stage 5D. He will have his routine hemodialysis treatment today with a 4K bath and to his dry weight. Blood pressure. Stable. Fluid volume. Euvolemic on exam. Anemia. Stable. Electrolytes and acid base balance. Stable. Corrections with hemodialysis today. PVD. He underwent CTA with runoff today.
[2019-08-19] MEDS: PROTONIX PO SCH (21:37)
[2019-08-19] MEDS: ASPIRIN PO SCH (21:38)
[2019-08-19] MEDS: TENORMIN PO SCH (21:38)
[2019-08-19] MEDS: LIPITOR PO SCH (21:38)
--- NOTE | 2019-08-20 00:48 | GENERAL SURGERY PROGRESS NOTE ---
DATE: 08/19/2019 SUBJECTIVE: The patient was seen during dialysis today. He has had no acute changes. OBJECTIVE: Vital Signs: He is afebrile. Vital signs are stable. General: He is awake, alert, oriented x3. No acute distress. Extremities: Left foot unchanged necrotic purulent wound of the left 5th toe. IMAGING: CT of the aorta and runoff of the lower extremity reveals high-grade stenosis or occlusion of the superficial femoral artery and popliteal arteries, as well as probable significant stenosis at the bifurcation of the tibioperoneal trunk, with an occluded posterior tibial artery. The peroneal and anterior tibial arteries are not clearly patent due to the calcification of the vessel. ASSESSMENT AND PLAN: A 59-year-old male with left foot toe ulcer, infection and gangrene. He has severe peripheral arterial disease with poor runoff below the knee, I think this is likely unsalvageable. I will discuss with Dr. Chong, but he will probably need above-knee amputation this admission. I have discussed this with him, he is obviously disappointed and we will reconvene tomorrow. cc: Jeff Shannon MD
[2019-08-20] MEDS: TYLENOL PO PRN (05:29)
[2019-08-20 05:33] LABS: BASO# 0.02 X1000 (0.0-0.2); BASO% 0.2 % (0.0-0.8); EOS# 0.22 X1000 (0.0-0.7); HEMATOCRIT 31.7 % (42.0-52.0); IMM GRAN# 0.04 X1000 (0.0-0.04); IMM GRAN% 0.4 % (0.0-0.5); LYMPH# 1.21 X1000 (1.2-3.4); MCH 25.6 PG (27-31); MCHC 28.4 g/dL (33-37); MCV 90.3 FL (81-99); MONO# 1.12 X1000 (0.11-0.59); MONO% 10.2 % (1.7-9.3); MPV 8.5 FL (7.4-10.4); NEUT# 8.39 X1000 (1.4-6.5); NEUT% 76.2 % (42.2-75.2); PLT 503 X1000 (130-400); RBC 3.51 XMIL (4.7-6.1); RDW 15.1 % (11.5-14.5)
[2019-08-20] MEDS ORDERED: TIGHT: 0.2 ML/HR FOR DIALYSIS MISC PRN (06:24)
[2019-08-20] MEDS ORDERED: NS 2,000 ML MISC PRN (06:24)
[2019-08-20] MEDS ORDERED: HEPARIN IV PRN (06:24)
[2019-08-20 06:37] LABS: ALB/GLOB RATIO 0.7; ALBUMIN 3.1 g/dL (3.5-5.0); CALCIUM 9.7 mg/dL (8.8-10.2); MAGNESIUM 1.9 mg/dL (1.5-2.7); POTASSIUM 4.3 mmol/L (3.5-5.1); TOTAL BILIRUBIN 0.3 mg/dL (0.20-1.00); TOTAL PROTEIN 7.3 g/dL (6.3-8.3)
[2019-08-20 06:40] LABS: CREATININE 7.1 mg/dL (0.7-1.2)
[2019-08-20] MEDS: HEPARIN SUBQ SCH ×2 (08:57→20:45)
[2019-08-20] MEDS: ROBAXIN PO SCH ×3 (08:57→17:38)
[2019-08-20] MEDS: DEPAKOTE PO SCH ×3 (08:57→20:44)
[2019-08-20] MEDS: ALPHAGAN 0.2% OPHTH SOLN BOTH EYES SCH ×2 (08:57→20:30)
[2019-08-20] MEDS: NEURONTIN PO SCH ×2 (08:57→20:44)
--- NOTE | 2019-08-20 13:40 | PROGRESS NOTE ---
DATE: 08/20/2019 SUBJECTIVE: He says his foot still throbs. He feels like the swelling is down some. I think Dr. Chong wanted to try and see if they could open up some of the arterial flow in that foot. It is likely if that is not successful he will need an amputation. EXAM: Vital Signs: Today afebrile, temperature 98.5 degrees, pulse 60, respirations 18, blood pressure 151/62. HEENT: Pupils are equal and round. Lungs: Clear in all lung regalado. Cardiovascular exam: Regular rhythm and rate without murmur or S3. CT of the aorta with runoff reveals high-grade stenosis of occlusion of superficial femoral artery and popliteal arteries, and probably significant stenosis in the bifurcation of the tibioperoneal trunk with an occluded posterior tibial artery. Continue present antibiotics. His wound cultures grew out Enterobacter and Morganella. He is currently on Lipitor 80 mg a day, Tenormin 25 mg at bedtime, gabapentin 200 mg at bedtime, Depakote 125 mg t.i.d. He also gets gabapentin 100 mg in the morning, quetiapine which is Seroquel 25 mg at bedtime p.r.n., and getting ceftriaxone and vancomycin IV. cc: Caesar Locke MD
[2019-08-20] MEDS: ROCEPHIN 2 GM in NS 50 ML IV SCH (14:00)
[2019-08-20] MEDS: ULTRACET 37.5MG/325MG PO SCH ×2 (14:02→23:49)
--- NOTE | 2019-08-20 18:02 | PROVIDER PROGRESS NOTE ---
Progress Note Subjective: Pt voices left foot pain no longer being controlled with current pain medicine. He denies any chest pain, shortness of breath, or n/v. Objective: vitals. Temperature 97.9, pulse 61, respirations 18, blood pressure 144/66, O2 sat 100% on room air. General: elderly -German male sitting up to the side of the bed in no acute distress. HEENT: normocephalic, atraumatic, conjunctiva pale. Pupils equal and reactive. Mucous membranes moist. Trachea midline. Skin: warm and dry Neck: supple, 6 cm JVD observed Cardiovascular: S1, S2. Regular rate and rhythm with a soft systolic murmur. No gallop noted. Respiratory: clear bilaterally with equal air entry anteriorly Abdomen: soft, nontender, nondistended. Positive bowel sounds. : none inspected Extremities: right a.k.a. Dressing to the left foot in place, foul odor noted Neurological: alert and oriented to person, place, and time. Labs: WBC 11, hemoglobin nine, hematocrit 31.7, platelet count 503, sodium 140, potassium 4.3, chloride 97, carbon dioxide 26, BUN 25, creatinine 7.1. Intake 0, output 1600 Impression: Chronic kidney disease stage 5D. He had his hemodialysis treatment yesterday without complications. No change in plan. Blood pressure. Stable. Fluid volume. Euvolemic on exam. Anemia. Stable. Electrolytes and acid base balance. Stable. Left foot pain. We will adjust pain medications. Scheduled Ultracet. Nutrition. Adequate. Medication review.
--- NOTE | 2019-08-20 19:18 | GENERAL SURGERY PROGRESS NOTE ---
DATE: 08/20/2019 SUBJECTIVE: The patient has had no acute changes overnight. He still has pain in his left foot. OBJECTIVE: He is afebrile. Vital signs are stable.General: He is awake, alert, oriented x3. No acute distress. Extremities: The left foot was examined. There remains some purulent fluid in the pad at the metatarsophalangeal joint on the left. That is the 5th digit. He also has a hard callus on the lateral left heel that is also quite tender to palpation. I cannot definitely detect fluctuance in this area however. LABORATORY: White blood cell count 11,000, hemoglobin 9. Electrolytes reviewed and unremarkable. ASSESSMENT AND PLAN: A 59-year-old male with left foot infections, gangrenous 5th toe, nonhealing wounds and severe peripheral arterial disease. I discussed his angiogram with Dr. Chong. There are no real good options for revascularization. Therefore, I have discussed with the patient amputation, above-knee amputation versus below-knee amputation. He is hesitant to commit to that at this time. I have offered to him a debridement and washout of his foot tomorrow. It is possible that if we drain the infection and it is not real deep, then these wounds might dry up and just have a desiccated dry gangrene. He could then keep his foot for balance and transferring. So that is the plan, to debride and washout the foot tomorrow. Continue local wound care with Betadine and dry dressings. Continue his antibiotics and see how the wound either progresses or regresses over the weekend. cc: Jeff Shannon MD
[2019-08-20] MEDS: ASPIRIN PO SCH (20:44)
[2019-08-20] MEDS: PROTONIX PO SCH (20:44)
[2019-08-20] MEDS: LIPITOR PO SCH (20:44)
[2019-08-20] MEDS: TENORMIN PO SCH (20:45)
[2019-08-21 06:21] LABS: ALB/GLOB RATIO 0.7; ALBUMIN 2.8 g/dL (3.5-5.0); CALCIUM 9.1 mg/dL (8.8-10.2); CREATININE 8.9 mg/dL (0.7-1.2); MAGNESIUM 1.9 mg/dL (1.5-2.7); POTASSIUM 4.2 mmol/L (3.5-5.1); TOTAL BILIRUBIN 0.16 mg/dL (0.20-1.00); TOTAL PROTEIN 6.9 g/dL (6.3-8.3)
[2019-08-21] MEDS ORDERED: TIGHT: 0.2 ML/HR FOR DIALYSIS MISC PRN (06:21)
[2019-08-21] MEDS ORDERED: HEPARIN IV PRN (06:21)
[2019-08-21] MEDS ORDERED: NS 2,000 ML MISC PRN (06:21)
[2019-08-21 06:30] LABS: BASO# 0.03 X1000 (0.0-0.2); BASO% 0.3 % (0.0-0.8); EOS# 0.29 X1000 (0.0-0.7); EOS% 2.6 % (0.0-10.0); HEMATOCRIT 28.9 % (42.0-52.0); HEMOGLOBIN 8.2 g/dL (14.0-18.0); IMM GRAN# 0.06 X1000 (0.0-0.04); IMM GRAN% 0.5 % (0.0-0.5); LYMPH# 1.56 X1000 (1.2-3.4); MCH 25.7 PG (27-31); MCHC 28.4 g/dL (33-37); MCV 90.6 FL (81-99); MONO# 0.97 X1000 (0.11-0.59); MONO% 8.7 % (1.7-9.3); MPV 8.6 FL (7.4-10.4); NEUT# 8.25 X1000 (1.4-6.5); NEUT% 73.9 % (42.2-75.2); PLT 492 X1000 (130-400); RBC 3.19 XMIL (4.7-6.1); RDW 15.1 % (11.5-14.5); WBC 11.16 X1000 (4.8-10.8)
[2019-08-21 08:03] LABS: EOS 2 % (1-10); LYMPHS 15 % (21-51); MONO 7 % (1-9); SEGS 76 % (42-75)
[2019-08-21] MEDS ORDERED: XYLOCAINE-MPF 1% INJ ONE (09:02)
[2019-08-21] MEDS: DEPAKOTE PO SCH ×4 (12:07→21:14)
[2019-08-21] MEDS: ROBAXIN PO SCH ×4 (12:08→16:42)
[2019-08-21] MEDS ORDERED: VERSED ONE (13:05)
[2019-08-21] MEDS ORDERED: FENTANYL ONE (13:05)
[2019-08-21] MEDS ORDERED: XYLOCAINE-MPF 2% ONE (13:44)
[2019-08-21] MEDS ORDERED: DIPRIVAN 1% ONE (13:44)
[2019-08-21] MEDS: ROCEPHIN 2 GM in NS 50 ML IV SCH (14:32)
--- NOTE | 2019-08-21 14:32 | PROVIDER PROGRESS NOTE ---
Progress Note Subjective: Mr. Masterson voices better pain control however he is still having some breakthrough pain. He denies any other complaints. Objective: vitals. Temperature 98.1, pulse 57, blood pressure 94/76, O2 sat 100% on room air. General: elderly -Emir[place] male lying in bed in no acute distress. HEENT: normocephalic, atraumatic, conjunctiva pale. Pupils equal and reactive. Mucous membranes moist. Trachea midline. Skin: warm and dry. Left heel thick Escher. Neck: supple, no JVD observed Cardiovascular: S1, S2. Regular rate and rhythm with a soft systolic murmur. No gallop noted. Respiratory: clear bilaterally with equal air entry anteriorly Abdomen: soft, nontender, nondistended. Positive bowel sounds. : none inspected Extremities: right a.k.a. Dressing to the left foot in place, foul odor noted. Dependent edema to left foot. Neurological: alert and oriented to person, place, and time. Labs: WBC 11.16, hemoglobin 8.2, hematocrit 28.9, platelet count 492, sodium 139, potassium 4.2, chloride 96, carbon dioxide 28, BUN 36, creatinine 8.9. Intake 260, output zero. Impression: Chronic kidney disease stage 5D. He will have his routine hemodialysis treatment with a 2k bath and ultrafiltration to the last post dialysis weight. Most likely after his surgical debridement of the left foot. Blood pressure. Stable. Fluid volume. Euvolemic on exam. Anemia. Stable. Electrolytes and acid base balance. Stable. Left foot pain. Dr. Shannon is planning on debris in his left foot today. He voices more adequate pain control at the moment. Nutrition. Adequate. NPO this morning. Medication review. Rocephin 2gm
[2019-08-21] MEDS ORDERED: KETAMINE ONE (15:05)
[2019-08-21] MEDS: DILAUDID ONE ×3 (15:47→16:34)
[2019-08-21] MEDS: ALPHAGAN 0.2% OPHTH SOLN BOTH EYES SCH ×2 (16:33→21:14)
[2019-08-21] MEDS: NEURONTIN PO SCH ×3 (16:33→21:14)
[2019-08-21] MEDS: HEPARIN SUBQ SCH ×2 (16:33→21:15)
--- NOTE | 2019-08-21 17:23 | PROGRESS NOTE ---
DATE: 08/21/2019 SUBJECTIVE: Mr. Masterson has undergone surgery this afternoon. He is still pretty lethargic, breathing comfortably. He has remained afebrile. OBJECTIVE: Vital Signs: Temperature 97.9 degrees, pulse 62, respirations 17, blood pressure 145/57. HEENT: Pupils are equal and round. Lungs: Clear in all lung regalado. Cardiovascular: Regular rhythm and rate without murmur or S3. Abdomen: Soft. Skin: Warm and dry. ASSESSMENT AND PLAN: 1. Chronic kidney disease stage 5D. Continue his routine hemodialysis. 2. He underwent surgical debridement of his foot, and he has left foot infections, gangrenous 5th toe, nonhealing wounds, severe peripheral artery disease. Dr. Chong took him for surgery. He does not have any real good options for revascularization, so they are trying to improve his blood flow. If this does not work, he may be facing [id number] amputation versus below- the-knee amputation. Continue his current antibiotics. His cultures grew Enterococcus faecalis and Morganella morgagnii. Continue current antibiotics. He is on vancomycin, and he is on ceftriaxone. Looking at the cultures, the Enterococcus is sensitive to ampicillin and vancomycin and the Morganella is sensitive to cefepime and ceftazidime and ceftriaxone. His volume status looks good, and his electrolytes look good. Continue present therapy. cc: Caesar Locke MD MTDD
[2019-08-21] MEDS ORDERED: VANCOMYCIN 1 GM/NS 1 GM/250 ML IVPB IV ONE (18:00)
[2019-08-21] MEDS ORDERED: EPHEDRINE ONE (19:23)
[2019-08-21] MEDS ORDERED: ROBINUL ONE (19:26)
[2019-08-21] MEDS: ASPIRIN PO SCH (21:14)
[2019-08-21] MEDS: TENORMIN PO SCH (21:18)
[2019-08-21] MEDS: LIPITOR PO SCH (21:18)
[2019-08-21] MEDS: PROTONIX PO SCH (21:18)
--- NOTE | 2019-08-21 22:44 | OPERATIVE NOTE ---
PROCEDURE DATE: 08/21/2019 PREOPERATIVE DIAGNOSIS: Left foot gangrenous ulcers and severe peripheral arterial disease. POSTOPERATIVE DIAGNOSIS: Left foot gangrenous ulcers and severe peripheral arterial disease. PROCEDURE: 1. Debridement of skin and subcutaneous tissue and fascia less than 20 square cm of left foot. 2. Debridement of skin and subcutaneous tissue less than 20 square cm of the left foot. SURGEON: Jeff Shannon MD. ANESTHESIA: General. ESTIMATED BLOOD LOSS: 5 mL. COMPLICATIONS: None apparent. SPECIMENS: None. FINDINGS: The distal left foot had extensive necrosis of the skin and all the soft tissue down to the bones of the 4th and 5th toes and metatarsal heads. The wound measured 6 x 6 cm, and all the soft tissue was debrided sharply and excised. The heel wound measured 3 x 4 cm and had necrotic skin and subcutaneous tissue, but it did not go down to the bone. There was minimal bleeding. TECHNIQUE: He was brought to the operating room and placed supine on the table. General anesthesia was induced. His foot was prepped and draped in usual sterile fashion. A 15 blade was used to sharply excise and debride the soft tissue and skin as described above. There was minimal bleeding at the skin edges. It is my opinion that this foot is not salvageable and will not heal. There is no longer any soft tissue covering the plantar aspect of the left lateral foot distally, and he has poor inflow to heal this wound. We will discuss with him BKA or AKA in the coming days. A sterile dressing was applied. There were no apparent complications. cc: Jeff Shannon MD
[2019-08-22] MEDS: NORCO-7.5 PO PRN ×2 (02:13→06:18)
[2019-08-22 05:29] LABS: BASO# 0.02 X1000 (0.0-0.2); BASO% 0.2 % (0.0-0.8); EOS# 0.18 X1000 (0.0-0.7); EOS% 1.9 % (0.0-10.0); HEMATOCRIT 31.8 % (42.0-52.0); IMM GRAN# 0.03 X1000 (0.0-0.04); IMM GRAN% 0.3 % (0.0-0.5); LYMPH# 1.19 X1000 (1.2-3.4); LYMPH% 12.2 % (20.5-51.1); MCH 25.9 PG (27-31); MCHC 28.3 g/dL (33-37); MCV 91.6 FL (81-99); MONO# 0.68 X1000 (0.11-0.59); MPV 8.7 FL (7.4-10.4); NEUT# 7.62 X1000 (1.4-6.5); NEUT% 78.4 % (42.2-75.2); PLT 463 X1000 (130-400); RBC 3.47 XMIL (4.7-6.1); RDW 15.3 % (11.5-14.5); WBC 9.72 X1000 (4.8-10.8)
[2019-08-22 06:00] LABS: ALB/GLOB RATIO 0.6; ALBUMIN 2.7 g/dL (3.5-5.0); CALCIUM 9.1 mg/dL (8.8-10.2); CREATININE 5.7 mg/dL (0.7-1.2); MAGNESIUM 1.8 mg/dL (1.5-2.7); POTASSIUM 3.8 mmol/L (3.5-5.1); TOTAL BILIRUBIN 0.19 mg/dL (0.20-1.00); TOTAL PROTEIN 7.2 g/dL (6.3-8.3)
[2019-08-22] MEDS: ALPHAGAN 0.2% OPHTH SOLN BOTH EYES SCH ×2 (09:13→21:19)
[2019-08-22] MEDS: ROBAXIN PO SCH ×3 (09:13→17:47)
[2019-08-22] MEDS: DEPAKOTE PO SCH ×3 (09:13→21:18)
[2019-08-22] MEDS: HEPARIN SUBQ SCH ×2 (09:14→21:19)
[2019-08-22] MEDS: NEURONTIN PO SCH ×2 (09:15→21:18)
[2019-08-22] MEDS: DILAUDID IV PRN (12:18)
[2019-08-22] MEDS: ROCEPHIN 2 GM in NS 50 ML IV SCH (13:30)
--- NOTE | 2019-08-22 15:18 | PROGRESS NOTE ---
DATE: 08/22/2019 INTERVAL HISTORY: The patient is status post extensive debridement of necrotic and infected left toe/left lateral toe/foot yesterday. No acute events overnight. Pain well controlled. No new complaints. Remains afebrile. REVIEW OF SYSTEMS: Twelve point review of systems negative as per interval history. LABS: WBC 9.7, hemoglobin 9, hematocrit 31.8, platelets 463. Sodium 138, potassium 3.8, bicarb 24, BUN 17, creatinine 5.7, glucose 72. VITALS: T-max 99.3 degrees, pulse 57, respirations 15, blood pressure 100/45, O2 saturation 100% on room air. PHYSICAL EXAMINATION: General: No acute distress. Vitals: As above. HEENT: Normocephalic, atraumatic. Moist mucous membranes. Cardiovascular: Regular rate and rhythm. No murmurs noted. Pulmonary: Clear to auscultation bilaterally. No wheezing, rales, or rhonchi. Abdomen: Soft, nontender, nondistended. Bowel sounds positive. Extremities: Right [id number] amputation noted and stable. Left foot bandaged. Upper extremity pulses intact. Neurologic: Cranial nerves grossly intact. No focal deficits identified. Psychiatric: Normal mood and affect. Awake, alert, oriented x3. ASSESSMENT AND PLAN: 1. Left 5th toe gangrene with infected wound. The patient is status post debridement yesterday but surgery believes the blood supply to be poor and the odds of adequate healing small. Did discuss this a little bit with the patient. Awaiting further discussion with Surgery about potential amputation. We will continue antibiotics with vancomycin and Rocephin for now. I reviewed patient's recent arterial study and he had pretty extensive stenosis of the arteries on the left almost the entire way down and does not appear to be a likely candidate for revascularization. Ultrasound showed similarly poor flow distally. 2. Peripheral arterial disease contributing to above. Continue aspirin and statin. 3. Hypertension. Good control currently on atenolol. Continue to monitor. 4. Hyperlipidemia. Continue statin. 5. Anemia of chronic disease, stable. Monitor. 6. Disposition: Awaiting further decision about possible further surgery with amputation versus conservative treatment with antibiotics. If we did conservative treatment, he will likely need a very extended course given poor blood flow to the affected extremity and relatively poor prognosis for healing.
--- NOTE | 2019-08-22 16:23 | NEPHROLOGY PROGRESS NOTE ---
DATE: 08/22/2019 SUBJECTIVE: He is resting in bed. He had his toe debrided yesterday. His appetite is low but he is eating. No vomiting. OBJECTIVE: Vital Signs: Blood pressure 115/48, heart rate 60, respirations 15, afebrile. General: In no acute distress. Skin: Warm and dry. Conjunctivae are pink. Neck: Neck veins are not visible. Heart: Regular with S4. Lungs: Equal. No crackles. Abdomen: Benign. Extremities: No edema. Foot is dressed. IMPRESSION: Chronic kidney disease, 5B. He had his routine dialysis yesterday. Electrolytes/acid base/volume status in target. Hemoglobin is below target but stable. No changes today. cc: Burke Lopez MD
--- NOTE | 2019-08-22 18:49 | GENERAL SURGERY PROGRESS NOTE ---
DATE: 08/22/2019 SUBJECTIVE: The patient has pain in his left foot. OBJECTIVE: He is afebrile. Vital signs are stable.General: He is awake, alert, and oriented x3. No acute distress. Extremities: The left foot was examined. The heel wound had minimal bleeding and slough throughout the wound bed. The distal foot wound continues to show necrosis of the 5th toe with slough throughout the wound bed. There is exposed metatarsal head. There is minimal bleeding from the edges. LABORATORY: Reviewed and unremarkable. ASSESSMENT AND PLAN: A 59-year-old male, status post debridement of the left foot for severe peripheral arterial disease and gangrenous ulcers. I do not have a high expectation of these wounds improving. The patient has been unwilling to undergo amputation at this time. My recommendation is continue Betadine painting every day, and see if there is any improvement over the weekend. If there is not, then I would strongly encourage him to allow an amputation of his leg next week. cc: Jeff Shannon MD
[2019-08-22] MEDS: LIPITOR PO SCH (21:18)
[2019-08-22] MEDS: TENORMIN PO SCH (21:18)
[2019-08-22] MEDS: PROTONIX PO SCH (21:18)
[2019-08-22] MEDS: ASPIRIN PO SCH (21:19)
[2019-08-23] MEDS ORDERED: NS 2,000 ML MISC PRN (08:22)
[2019-08-23] MEDS ORDERED: HEPARIN IV PRN (08:22)
[2019-08-23] MEDS ORDERED: TIGHT: 0.2 ML/HR FOR DIALYSIS MISC PRN (08:22)
[2019-08-23] MEDS ORDERED: VANCOMYCIN 1 GM/NS 1 GM/250 ML IVPB IV SCH (09:00)
[2019-08-23 09:56] LABS: CALCIUM 9.4 mg/dL (8.8-10.2); CREATININE 8.3 mg/dL (0.7-1.2); POTASSIUM 3.8 mmol/L (3.5-5.1)
[2019-08-23] MEDS: NORCO-7.5 PO PRN ×2 (10:39→17:33)
[2019-08-23] MEDS: ALPHAGAN 0.2% OPHTH SOLN BOTH EYES SCH ×2 (10:40→21:26)
[2019-08-23] MEDS: DEPAKOTE PO SCH ×3 (10:40→21:24)
[2019-08-23] MEDS: NEURONTIN PO SCH ×2 (10:40→21:24)
[2019-08-23] MEDS: ROBAXIN PO SCH ×3 (10:41→17:26)
[2019-08-23] MEDS: HEPARIN SUBQ SCH ×2 (10:41→21:24)
[2019-08-23] MEDS: DILAUDID IV PRN ×2 (12:01→19:58)
[2019-08-23] MEDS ORDERED: VANCOMYCIN 1 GM/NS 1 GM/250 ML IVPB IV ONE (17:00)
--- NOTE | 2019-08-23 17:13 | PROGRESS NOTE ---
DATE: 08/23/2019 INTERVAL HISTORY: The patient complaining of some pain in his left foot, but otherwise no complaints. No acute events overnight. REVIEW OF SYSTEMS: Twelve point review of systems negative as per interval history. LABS: Sodium 140, potassium 3.8, BUN 31, creatinine 8.3, glucose 97. VITAL SIGNS: T-max 99.6 degrees, pulse 60, respirations 15, blood pressure 111/88, O2 saturation 100% on room air. PHYSICAL EXAMINATION: General: No acute distress. Vitals: As above. HEENT: Normocephalic, atraumatic. Moist mucous membranes. Cardiovascular: Regular rate and rhythm. No murmurs noted. Pulmonary: Clear to auscultation bilaterally. No wheezing, rales, or rhonchi. Abdomen: Soft, nontender, nondistended. Bowel sounds positive. Extremities: Right [id number] amputation stable. Left foot remains bandaged. Upper extremity pulses decreased but present. Neurologic: Cranial nerves grossly intact. No focal deficits. Psychiatric: Normal mood and affect. Awake, alert, oriented x3. ASSESSMENT AND PLAN: 1. Left 5th toe and lateral foot gangrene with infected wound. The patient is status post debridement on 08/21 but surgery believes blood supply is inadequate for healing, recent arterial studies would support that. Surgery plans to watch the wound over the weekend, see what looks like on Sunday before having further conversation about amputation. The patient has been reluctant to proceed with that so far but does not seem adamantly opposed if it is strongly recommended. 2. Peripheral arterial disease strongly contributing to above. Continue aspirin and statin. 3. Hypertension. Continue atenolol. 4. Hyperlipidemia. Continue statin. 5. Anemia of chronic disease, essentially stable. Continue to monitor.
[2019-08-23] MEDS: ROCEPHIN 2 GM in NS 50 ML IV SCH (17:28)
[2019-08-23] MEDS: ZOFRAN IV PRN (19:58)
--- NOTE | 2019-08-23 20:52 | NEPHROLOGY PROGRESS NOTE ---
DATE: 08/23/2019 SUBJECTIVE: He is resting in his room without new complaints. He has a box of starch at the bedside that he is eating. He states he has eaten it all his adult life. OBJECTIVE: Vital Signs: Blood pressure 111/97, heart rate 61, respirations 16, afebrile. General: No acute distress. Skin: Warm and dry. Neck: Neck veins are not distended. Heart: Regular with murmur and a gallop. Lungs: Equal. No crackles. Abdomen: Soft, nontender. Normal bowel sounds. Extremities: Minimal edema. IMPRESSION: Chronic kidney disease 5D. He is due for his routine dialysis today. We will use his last post dialysis weight and a 3 potassium bath. Electrolytes/acid base in target. Hemoglobin is below target but stable. No changes. cc: Burke Lopez MD
[2019-08-23] MEDS: PROTONIX PO SCH (21:24)
[2019-08-23] MEDS: TENORMIN PO SCH (21:24)
[2019-08-23] MEDS: LIPITOR PO SCH (21:24)
[2019-08-23] MEDS: ASPIRIN PO SCH (21:24)
[2019-08-24] MEDS: NORCO-7.5 PO PRN ×3 (00:06→17:45)
[2019-08-24] MEDS: DILAUDID IV PRN ×5 (02:09→18:27)
[2019-08-24] MEDS: ZOFRAN IV PRN ×2 (02:10→06:49)
[2019-08-24 05:48] LABS: BASO# 0.02 X1000 (0.0-0.2); BASO% 0.3 % (0.0-0.8); EOS# 0.23 X1000 (0.0-0.7); EOS% 3.1 % (0.0-10.0); HEMATOCRIT 30.4 % (42.0-52.0); HEMOGLOBIN 8.4 g/dL (14.0-18.0); IMM GRAN# 0.06 X1000 (0.0-0.04); IMM GRAN% 0.8 % (0.0-0.5); LYMPH# 1.09 X1000 (1.2-3.4); LYMPH% 14.5 % (20.5-51.1); MCH 25.4 PG (27-31); MCHC 27.6 g/dL (33-37); MCV 91.8 FL (81-99); MONO# 0.82 X1000 (0.11-0.59); MONO% 10.9 % (1.7-9.3); MPV 8.8 FL (7.4-10.4); NEUT# 5.32 X1000 (1.4-6.5); NEUT% 70.4 % (42.2-75.2); PLT 414 X1000 (130-400); RBC 3.31 XMIL (4.7-6.1); RDW 15.3 % (11.5-14.5); WBC 7.54 X1000 (4.8-10.8)
[2019-08-24 06:15] LABS: CALCIUM 9.5 mg/dL (8.8-10.2); CREATININE 4.9 mg/dL (0.7-1.2); POTASSIUM 3.7 mmol/L (3.5-5.1)
[2019-08-24] MEDS: NEURONTIN PO SCH ×2 (08:02→20:42)
[2019-08-24] MEDS: ALPHAGAN 0.2% OPHTH SOLN BOTH EYES SCH ×2 (08:03→20:43)
[2019-08-24] MEDS: DEPAKOTE PO SCH ×3 (08:03→20:42)
[2019-08-24] MEDS: ROBAXIN PO SCH ×3 (08:03→16:38)
[2019-08-24] MEDS: HEPARIN SUBQ SCH ×2 (08:03→20:43)
--- NOTE | 2019-08-24 10:07 | GENERAL SURGERY PROGRESS NOTE ---
DATE: 08/24/2019 SUBJECTIVE: Patient doing okay. OBJECTIVE: Vital Signs: Patient is currently afebrile. His vital signs are stable. General: No acute distress. Cardiovascular: Regular rate and rhythm. Lungs: Grossly clear. Abdomen: Soft, nontender. Extremities: Left foot wound dressing removed, still with gangrenous tissue. ASSESSMENT AND PLAN: A 59-year-old gentleman with significant peripheral vascular disease. 1. Peripheral vascular disease and gangrenous foot ulcer. At this time, I think he is likely going to need an amputation. Judging by his arterial flow, he would have tough time he healing anything at the foot. He may even have a tough time healing anything at the below-the- knee amputation site. 2. We will make him NPO after midnight and have Dr. Shannon reassess in the morning. cc: Peter Contreras MD
[2019-08-24] MEDS: ROCEPHIN 2 GM in NS 50 ML IV SCH (13:39)
--- NOTE | 2019-08-24 14:36 | PROGRESS NOTE ---
DATE: 08/24/2019 INTERVAL HISTORY: Patient still with fairly significant left foot pain, although better controlled than previous. He is now amenable to amputation if that is still Surgery's recommendation. He remains afebrile. No other acute events. No new complaints. REVIEW OF SYSTEMS: A 12-point review of systems is negative, except as per interval history. LABORATORY DATA: WBC 7.5, hemoglobin 8.4, hematocrit 30.4, platelets 414,000. Sodium 141, potassium 3.7, BUN 15, creatinine 4.9. OBJECTIVE: Vital Signs: T-max 98.6 degrees, pulse 85, respirations 16, blood pressure 131/35, O2 saturation 100% on room air. General: No acute distress. HEENT: Normocephalic, atraumatic. Moist mucous membranes. Cardiovascular: Regular rate and rhythm. No murmurs noted. Pulmonary: Clear to auscultation bilaterally. No wheezing, rales, or rhonchi. Abdomen: Soft, nontender, nondistended. Bowel sounds positive. Extremities: Right [id number]-[id number] amputation, stable, well healed. Left foot remains bandaged. Bandage clean, dry, intact. Neurologic: Cranial nerves grossly intact. No focal deficits. Psychiatric: Normal mood and affect. Awake, alert, and oriented x3. ASSESSMENT AND PLAN: 1. Left fifth toe and lateral foot gangrene and infected wound. The patient is status post debridement on 08/21/2019, but Surgery believes blood supply is likely not adequate for healing. The patient is still with some discomfort, although improved overall. He was initially quite resistant to the idea of amputation, but is now more amenable to that if that is still Surgery's recommendation. I believe Surgery plans on evaluating the wound tomorrow and making a decision. 2. Peripheral arterial disease. This is strongly contributing to his above issues. Continue aspirin and statin. 3. Hypertension. Continue atenolol. 4. Hyperlipidemia. Continue statin. 5. Anemia of chronic disease. Roughly stable. Monitor labs.
[2019-08-24] MEDS: LIPITOR PO SCH (20:42)
[2019-08-24] MEDS: ASPIRIN PO SCH (20:42)
[2019-08-24] MEDS: PROTONIX PO SCH (20:42)
[2019-08-24] MEDS: TENORMIN PO SCH (20:43)
[2019-08-25] MEDS: DILAUDID IV PRN ×3 (01:35→13:10)
[2019-08-25 05:27] LABS: BASO# 0.02 X1000 (0.0-0.2); BASO% 0.2 % (0.0-0.8); EOS# 0.32 X1000 (0.0-0.7); EOS% 3.7 % (0.0-10.0); HEMATOCRIT 34.1 % (42.0-52.0); HEMOGLOBIN 9.5 g/dL (14.0-18.0); IMM GRAN# 0.03 X1000 (0.0-0.04); IMM GRAN% 0.3 % (0.0-0.5); LYMPH# 1.18 X1000 (1.2-3.4); LYMPH% 13.7 % (20.5-51.1); MCH 25.7 PG (27-31); MCHC 27.9 g/dL (33-37); MCV 92.4 FL (81-99); MONO# 0.62 X1000 (0.11-0.59); MONO% 7.2 % (1.7-9.3); MPV 8.3 FL (7.4-10.4); NEUT# 6.43 X1000 (1.4-6.5); NEUT% 74.9 % (42.2-75.2); PLT 447 X1000 (130-400); RBC 3.69 XMIL (4.7-6.1); RDW 15.6 % (11.5-14.5)
[2019-08-25 05:54] LABS: CALCIUM 9.8 mg/dL (8.8-10.2); CREATININE 6.8 mg/dL (0.7-1.2); POTASSIUM 3.7 mmol/L (3.5-5.1)
[2019-08-25] MEDS: HEPARIN SUBQ SCH ×2 (08:13→21:03)
[2019-08-25] MEDS: NEURONTIN PO SCH ×2 (08:13→21:01)
[2019-08-25] MEDS: ROBAXIN PO SCH ×4 (08:14→19:08)
[2019-08-25] MEDS: DEPAKOTE PO SCH ×3 (08:14→21:02)
[2019-08-25] MEDS ORDERED: AMIDATE ONE (09:54)
[2019-08-25] MEDS ORDERED: XYLOCAINE-MPF 2% ONE (09:54)
[2019-08-25] MEDS ORDERED: FENTANYL ONE (10:26)
[2019-08-25] MEDS ORDERED: DECADRON ONE (10:43)
[2019-08-25] MEDS ORDERED: ZOFRAN ONE (10:43)
[2019-08-25] MEDS: DILAUDID ONE (12:00)
--- NOTE | 2019-08-25 12:36 | OPERATIVE NOTE ---
PROCEDURE DATE: 08/25/2019 PREOPERATIVE DIAGNOSES: 1. Peripheral arterial disease. 2. Left foot gangrene. POSTOPERATIVE DIAGNOSES: 1. Peripheral arterial disease. 2. Left foot gangrene. PROCEDURE: Left above knee amputation. SURGEON: Jeff Shannon MD ANESTHESIA: General. BLOOD LOSS: 250 mL. COMPLICATIONS: None apparent. SPECIMENS: Left leg. FINDING: The left superficial femoral artery was heavily calcified. The AKA soft tissues and skin however were viable. TECHNIQUE: The patient was brought to the operating room and placed supine on the table. General anesthesia was induced. He was prepped and draped in the usual sterile fashion. A fishmouth incision was made with a knife 1 hands-breath above the left patella and carried down through the subcutaneous tissue sharply. Cautery was used to continue dividing the muscle and fascia down to the femur. The anterior medial and lateral compartments were divided with cautery. Several venous branches in the superficial soft tissue were ligated with 3-0 silk and divided. The periosteum and muscle was cleaned off of the femur with the periosteal elevator and a Gigli saw was used to transect the femur. The superficial femoral artery, vein, and femoral nerve were clamped with a Tasha and the remaining posterior muscle and soft tissue attachments were divided with the amputation knife. The specimen was passed off the field. The femoral nerve was identified and transected proximal and allowed the proximal section to retract up into the muscle. The femoral vein and artery were individually , clamped and ligated with 2-0 silk stick tie. The rest of the oozing from the remaining muscle bed was controlled with cautery. The femur was filed down smooth. The wound was copiously irrigated with saline. There was no signs of any further bleeding. I then closed the fascia over the bone with interrupted [id number] #1 Vicryl. The skin was closed with skin clips. A sterile dressing was applied. There were no apparent complications. He was transferred to recovery room in stable condition. cc: Jeff Shannon MD
[2019-08-25] MEDS ORDERED: NORVASC PO SCH (12:45)
--- NOTE | 2019-08-25 13:19 | PROGRESS NOTE ---
DATE: 08/25/2019 SUBJECTIVE: The patient has no major complaints. OBJECTIVE: Vital Signs: Blood pressure is 131/38, heart rate 57, respiratory rate 13, temperature 97.6 degrees. 100%, but the last blood pressure was 209/70. Cardiovascular: Regular rate and rhythm. Pulmonary: Bilateral breath sounds clear to auscultate. Gastrointestinal: Abdomen soft, nontender, nondistended. Bowel sounds are positive. LABORATORY DATA: White count is 8, hemoglobin and hematocrit 9 and 34, platelets 447,000. Basic was normal. Creatinine 6.8, but he is a dialysis patient. PROBLEM LIST: 1. Left 5th toe lateral foot gangrene, infected wound. He is status post above-knee amputation today per Dr. Shannon. 2. Uncontrolled hypertension, likely related to pain. We will continue. He has been off his amlodipine, so we will resume that. I do not think it was in his initial home medication list. 3. Peripheral vascular disease. He is on aspirin and statin. Continue to follow. 4. Anemia of chronic inflammation and associated kidney disease. We will continue to monitor as well. DISPOSITION: Pending clinical status and surgical clearance but hopefully can leave in the next couple days. cc: Carlo Nunn MD
[2019-08-25] MEDS: ALPHAGAN 0.2% OPHTH SOLN BOTH EYES SCH ×2 (14:41→21:00)
[2019-08-25] MEDS: NORVASC PO SCH (14:57)
[2019-08-25] MEDS: ROCEPHIN 2 GM in NS 50 ML IV SCH (14:58)
--- NOTE | 2019-08-25 15:04 | PROVIDER PROGRESS NOTE ---
Progress Note Subjective: Mr. Masterson voices pain not well controlled to his left foot. When questioned why he had laundry powder on his bedside table he told me not to worry about it. Objective: vitals. 97.9, pulse 53, respirations 17, blood pressure 130/30, 02 sat 98% on room air. General: elderly -[place] male lying in bed in no acute distress. HEENT: normocephalic, atraumatic, conjunctiva pale. Pupils equal and reactive. Mucous membranes moist. Trachea midline. Skin: warm and dry. Left heel thick Escher with dressing in place. Neck: supple, 6cm JVD observed Cardiovascular: S1, S2. Regular rate and rhythm with a soft systolic murmur. No gallop noted. Respiratory: clear bilaterally with equal air entry anteriorly Abdomen: soft, nontender, nondistended. Positive bowel sounds. : none inspected Extremities: right a.k.a. Dressing to the left foot in place, Dependent edema to left foot. Neurological: alert and oriented to person, place, and time. Labs: WBC 8.60, hemoglobin 9.5, hematocrit 34.1, platelet count 447, sodium 138, potassium 3.7, chloride 93, carbon dioxide 28, BUN 23, creatinine 6.8. Intake 240, output zero Impression: Chronic kidney disease stage 5D. He had his routine hemodialysis treatment Sunday. No changes. Blood pressure. Stable. Fluid volume. Euvolemic on exam. Anemia. Stable. Electrolytes and acid base balance. Stable. Left foot pain. Voicing poor pain control. Dilaudid 0.5 q3-4 hrs with 1mg at dressing change. Robaxin 500 TID. Nutrition. Adequate. Pika. Medication review. No changes. anton
[2019-08-25] MEDS: NORCO-7.5 PO PRN ×2 (15:14→22:57)
[2019-08-25] MEDS: PROTONIX PO SCH (21:01)
[2019-08-25] MEDS: ASPIRIN PO SCH (21:01)
[2019-08-25] MEDS: LIPITOR PO SCH (21:02)
[2019-08-25] MEDS: TENORMIN PO SCH (21:02)
[2019-08-25] MEDS: TYLENOL PO PRN (21:16)
[2019-08-25] MEDS: SEROQUEL PO PRN (22:59)
[2019-08-26] MEDS: DILAUDID IV PRN ×4 (00:34→21:15)
[2019-08-26 05:41] LABS: BASO# 0.01 X1000 (0.0-0.2); BASO% 0.1 % (0.0-0.8); HEMATOCRIT 28.5 % (42.0-52.0); HEMOGLOBIN 8.3 g/dL (14.0-18.0); IMM GRAN# 0.12 X1000 (0.0-0.04); IMM GRAN% 0.9 % (0.0-0.5); LYMPH# 0.97 X1000 (1.2-3.4); LYMPH% 7.2 % (20.5-51.1); MCH 26.3 PG (27-31); MCHC 29.1 g/dL (33-37); MCV 90.5 FL (81-99); MONO# 0.67 X1000 (0.11-0.59); NEUT# 11.68 X1000 (1.4-6.5); NEUT% 86.8 % (42.2-75.2); PLT 438 X1000 (130-400); RBC 3.15 XMIL (4.7-6.1); RDW 15.6 % (11.5-14.5); WBC 13.45 X1000 (4.8-10.8)
[2019-08-26 06:26] LABS: CALCIUM 9.6 mg/dL (8.8-10.2); CREATININE 8.7 mg/dL (0.7-1.2); POTASSIUM 4.4 mmol/L (3.5-5.1)
[2019-08-26] MEDS ORDERED: NS 2,000 ML MISC PRN (08:03)
[2019-08-26] MEDS ORDERED: HEPARIN IV PRN (08:03)
[2019-08-26] MEDS ORDERED: TIGHT: 0.2 ML/HR FOR DIALYSIS MISC PRN (08:03)
[2019-08-26] MEDS: ROBAXIN PO SCH ×4 (08:20→17:08)
[2019-08-26] MEDS: DEPAKOTE PO SCH ×4 (08:20→21:15)
[2019-08-26] MEDS: ALPHAGAN 0.2% OPHTH SOLN BOTH EYES SCH ×2 (08:20→21:44)
[2019-08-26] MEDS: NEURONTIN PO SCH ×3 (08:20→21:45)
[2019-08-26] MEDS: NORVASC PO SCH ×2 (08:20→08:29)
[2019-08-26] MEDS: HEPARIN SUBQ SCH ×2 (08:21→21:15)
[2019-08-26] MEDS: ROCEPHIN 2 GM in NS 50 ML IV SCH (13:01)
--- NOTE | 2019-08-26 14:23 | PROGRESS NOTE ---
DATE: 08/26/2019 OBJECTIVE: Vital signs: Blood pressure 143/18 if that is possible; blood pressure 58/trace. Respiratory rate 17, temperature 98.1 degrees, on room air. Cardiovascular: Regular rate and rhythm. Pulmonary: Bilateral breath sounds clear to auscultation. Gastrointestinal: Soft, nontender, nondistended. Bowel sounds are positive. LABORATORY DATA: White count is 13, hemoglobin and hematocrit 8 and 28, platelets 438,000. Creatinine 8.7. PROBLEM LIST: 1. Left 5th toe foot and lateral foot gangrene, status post above-knee amputation. He is doing okay but has some confusion since surgical time. Refused dialysis today. Still having pain. 2. Hypertension. We will continue his regular medications. Blood pressure has improved on his regular regimen. 3. End-stage renal. He is on dialysis but refused dialysis today, so we will continue to monitor. 4. Penile discomfort. We will continue to monitor. I do not know if he still needs any antibiotics since he has had an above-knee amputation. I will at least stop his vancomycin and follow. I mean he has had 11 days of antibiotics. I am not sure if he needs further antibiotics, so we will continue to monitor closely. cc: Carlo Nunn MD MTDD
[2019-08-26] MEDS: NORCO-7.5 PO PRN (14:41)
[2019-08-26] MEDS: BACTROBAN OINTMENT TOP SCH ×2 (15:44→21:45)
[2019-08-26] MEDS ORDERED: VANCOMYCIN 1 GM/NS 1 GM/250 ML IVPB IV ONE (17:00)
--- NOTE | 2019-08-26 19:03 | PROVIDER PROGRESS NOTE ---
Progress Note Subjective: Mr. Masterson has no complaints. Objective: vitals. Temperature 98.0, pulse 54, blood pressure 109/36, 02 sat 96% on room air. General: elderly -[place] male lying in bed in no acute distress. HEENT: normocephalic, atraumatic, conjunctiva pale. Pupils equal and reactive. Mucous membranes dry. Trachea midline. Skin: warm and dry. Neck: supple, no JVD observed Cardiovascular: S1, S2. Regular rate and rhythm with a soft systolic murmur. No gallop noted. Respiratory: clear bilaterally with equal air entry anteriorly Abdomen: soft, nontender, nondistended. Positive bowel sounds. : none inspected Extremities: Bilateral a.k.a.. Dressing in place to left stump. Neurological: Drowsy, oriented to person and place. Labs: WBC 13.45, hemoglobin 8.3, hematocrit 28.5, platelet count 438, sodium 138, potassium 4.4, chloride 93, carbon dioxide 22, anion gap 23, BUN 37, creatinine 8.7. Intake 150, output 200. Impression: Chronic kidney disease stage 5D. He will have hemodialysis today. He is suspected for volume contraction so we will not pull any fluid off of him. Blood pressure. Stable. Fluid volume. Euvolemic on exam. Anemia. Stable. Electrolytes. Stable. acid base balance. Anion gap acidosis. Will order Acetone and not pull fluids during his treatment today. Nutrition. Adequate. Medication review.
--- NOTE | 2019-08-26 20:25 | GENERAL SURGERY PROGRESS NOTE ---
DATE: 08/26/2019 SUBJECTIVE: The patient says he is feeling okay today. He is eating. No chest pain or shortness of breath. OBJECTIVE: He is afebrile. Vital signs are stable. General: He is awake, alert, but does seem mildly confused. Extremities: The left AKA stump dressing was intact and dry. LABORATORY: White cell count 13,000, hemoglobin 8.3, hematocrit 28. Electrolytes reviewed and unremarkable. ASSESSMENT AND PLAN: A 59-year-old male with end-stage renal disease, peripheral arterial disease, and is now postop day 1 left above-knee amputation. We will leave the dressing intact for a couple more days and then examine the wound. cc: Jeff Shannon MD
[2019-08-26] MEDS: LIPITOR PO SCH (21:15)
[2019-08-26] MEDS: PROTONIX PO SCH (21:15)
[2019-08-26] MEDS: TENORMIN PO SCH (21:15)
[2019-08-26] MEDS: ASPIRIN PO SCH (21:15)
[2019-08-27] MEDS: DILAUDID IV PRN ×2 (04:08→07:38)
[2019-08-27 05:29] LABS: BASO# 0.03 X1000 (0.0-0.2); BASO% 0.3 % (0.0-0.8); EOS# 0.17 X1000 (0.0-0.7); EOS% 1.8 % (0.0-10.0); HEMOGLOBIN 7.7 g/dL (14.0-18.0); IMM GRAN# 0.06 X1000 (0.0-0.04); IMM GRAN% 0.6 % (0.0-0.5); LYMPH# 1.15 X1000 (1.2-3.4); LYMPH% 11.8 % (20.5-51.1); MCH 25.9 PG (27-31); MCHC 28.5 g/dL (33-37); MCV 90.9 FL (81-99); MONO# 0.79 X1000 (0.11-0.59); MONO% 8.1 % (1.7-9.3); MPV 8.9 FL (7.4-10.4); NEUT# 7.51 X1000 (1.4-6.5); NEUT% 77.4 % (42.2-75.2); PLT 446 X1000 (130-400); RBC 2.97 XMIL (4.7-6.1); RDW 16.1 % (11.5-14.5); WBC 9.71 X1000 (4.8-10.8)
[2019-08-27 05:58] LABS: ALBUMIN 2.8 g/dL (3.5-5.0); PHOSPHORUS 7.6 mg/dL (2.7-4.5); POTASSIUM 4.2 mmol/L (3.5-5.1)
[2019-08-27 06:03] LABS: CREATININE 10.5 mg/dL (0.7-1.2)
[2019-08-27] MEDS: HEPARIN SUBQ SCH ×2 (09:13→21:27)
[2019-08-27] MEDS: NORVASC PO SCH (09:13)
[2019-08-27] MEDS: DEPAKOTE PO SCH ×3 (09:13→21:27)
[2019-08-27] MEDS: ROBAXIN PO SCH ×2 (09:13→12:17)
[2019-08-27] MEDS: NEURONTIN PO SCH ×2 (09:13→21:27)
[2019-08-27] MEDS: BACTROBAN OINTMENT TOP SCH ×2 (09:19→21:28)
[2019-08-27] MEDS: ALPHAGAN 0.2% OPHTH SOLN BOTH EYES SCH ×2 (09:19→21:28)
[2019-08-27] MEDS ORDERED: NS 2,000 ML MISC PRN (11:25)
[2019-08-27] MEDS ORDERED: HEPARIN IV PRN (11:25)
[2019-08-27] MEDS: EMLA CREAM TOP PRN (12:10)
[2019-08-27] MEDS: NORCO-7.5 PO PRN ×2 (12:18→21:26)
--- NOTE | 2019-08-27 14:29 | GENERAL SURGERY PROGRESS NOTE ---
DATE: 08/27/2019 SUBJECTIVE: The patient says he feels pretty good. OBJECTIVE: Vital signs: Afebrile. Vital signs stable. General: He is awake, alert, and mildly confused, but follows commands. He is pleasant. No acute distress. Extremities: The left AKA dressing is clean and dry. ASSESSMENT AND PLAN: A 59-year-old male postoperative day 2, left above-knee amputation. I will go ahead and stop his antibiotics as the source of infection has been removed; although, it appears he may have a new infection of the penis that may require restarting gram-positive coverage. I will defer to the primary team for that. I will examine his above-knee amputation wound tomorrow. cc: Jeff Shannon MD
--- NOTE | 2019-08-27 16:05 | PROVIDER PROGRESS NOTE ---
Progress Note Subjective: Mr. Masterson voices feelings of general malaise. No other complaints notes. When asked about refusing dialysis yesterday, he says he does not remember that and is willing to be treated today. Objective: vitals. Temperature 98.5, pulse 58, respirations 18, blood pressure 110/69, O2 sat 100% on room air. General: elderly -Citizen Of [place] male lying in bed in no acute distress. HEENT: normocephalic, atraumatic, conjunctiva pale. Pupils equal and reactive. Mucous membranes dry. Trachea midline. Skin: warm and dry. Neck: supple, 6cm JVD observed Cardiovascular: S1, S2. Regular rate and rhythm with a soft systolic murmur. No gallop noted. Respiratory: clear bilaterally with equal air entry anteriorly Abdomen: soft, nontender, nondistended. Positive bowel sounds. : none inspected Extremities: Bilateral a.k.a.. Dressing in place to left stump. Neurological: Drowsy, oriented to person and place. Labs: WBC 9.71, hemoglobin 7.7, hematocrit 27, platelet count 446, sodium 136, potassium 4.2, chloride 92, carbon dioxide 25, BUN 50, creatinine 10.5, phosphorus 7.6. Intake 315, output zero Impression: Chronic kidney disease stage 5D. He will have hemodialysis today since he did not yesterday. He is volume contracted so we will not pull any fluid off of him. Blood pressure. Stable. Fluid volume. Above. Anemia. Stable. Electrolytes. Stable. Acid base balance. Improving. Nutrition. Adequate. Medication review. No changes.
--- NOTE | 2019-08-27 17:28 | PROGRESS NOTE ---
DATE: 08/26/2019 SUBJECTIVE: Patient has no major complaints. OBJECTIVE: Vital Signs: Blood pressure 115/86, heart rate 56, respiratory 14, temperature 93 degrees, 100% on room air. Cardiovascular: Regular rate and rhythm. Pulmonary: Bilateral breath sounds. Clear to auscultation. Gastrointestinal: Soft, nontender, nondistended. Bowel sounds are positive. Extremities: His amputation area looks okay. He seems to be doing okay generally speaking. I think he missed dialysis yesterday. He is not confused today. LABORATORY DATA: White count is 9, hemoglobin and hematocrit 7.7 and 27. Platelets 446.000. Creatinine is 10.5, potassium 4.2. PROBLEM LIST: 1. Left 5th toe foot gangrene, status post [id number] amputation. He is doing pretty well. He looks a lot better today and pain is under control. 2. Hypertension. He is on his regular medications and is normotensive. 3. End-stage renal and dialysis per Dr. Lopez. There is no acute indication. He did miss yesterday but I am not quite sure he was not just confused. Apparently, he did get dialyzed today. 4. Penile ulcer. He is on topical antibiotics. I think we stopped IV antibiotics. It looks like his penile culture is growing out something, so we may have to put him on some antibiotics. I am going to just put him on doxycycline for right now until we can get some confirmed treatment. cc: Carlo Nunn MD
[2019-08-27] MEDS: PROTONIX PO SCH (21:27)
[2019-08-27] MEDS: LIPITOR PO SCH (21:27)
[2019-08-27] MEDS: ASPIRIN PO SCH (21:27)
[2019-08-27] MEDS: TENORMIN PO SCH (21:27)
[2019-08-27] MEDS: DOXYCYCLINE PO SCH (23:01)
[2019-08-28] MEDS: DILAUDID IV PRN ×3 (04:33→23:59)
[2019-08-28 05:49] LABS: HEMATOCRIT 26.8 % (42.0-52.0); HEMOGLOBIN 7.8 g/dL (14.0-18.0); MCH 26.7 PG (27-31); MCHC 29.1 g/dL (33-37); MCV 91.8 FL (81-99); MPV 8.7 FL (7.4-10.4); RBC 2.92 XMIL (4.7-6.1); RDW 16.2 % (11.5-14.5); WBC 8.09 X1000 (4.8-10.8)
[2019-08-28 06:35] LABS: ALBUMIN 2.7 g/dL (3.5-5.0); CREATININE 5.6 mg/dL (0.7-1.2); PHOSPHORUS 4.2 mg/dL (2.7-4.5); POTASSIUM 3.6 mmol/L (3.5-5.1)
[2019-08-28] MEDS: BACTROBAN OINTMENT TOP SCH ×2 (09:14→21:55)
[2019-08-28] MEDS: ROBAXIN PO SCH ×3 (09:14→17:20)
[2019-08-28] MEDS: ALPHAGAN 0.2% OPHTH SOLN BOTH EYES SCH ×2 (09:14→21:54)
[2019-08-28] MEDS: HEPARIN SUBQ SCH ×2 (09:14→21:54)
[2019-08-28] MEDS: NORVASC PO SCH (09:15)
[2019-08-28] MEDS: DOXYCYCLINE PO SCH ×2 (09:15→21:53)
[2019-08-28] MEDS: DEPAKOTE PO SCH ×3 (09:15→21:54)
[2019-08-28] MEDS: NEURONTIN PO SCH ×2 (09:18→22:02)
[2019-08-28] MEDS: NORCO-7.5 PO PRN ×2 (10:17→21:54)
[2019-08-28] MEDS ORDERED: HEPARIN IV PRN (11:17)
[2019-08-28] MEDS ORDERED: NS 2,000 ML MISC PRN (11:17)
--- NOTE | 2019-08-28 13:02 | PROGRESS NOTE ---
DATE: 08/28/2019 SUBJECTIVE: Patient has no major complaints. OBJECTIVE: Vital Signs: Blood pressure 121/30, heart rate of 60, respiratory rate 18, temperature 98.9 degrees, oxygen saturation 100% on room air. Cardiovascular: Regular rate and rhythm. Pulmonary: Bilateral breath sounds. Clear to auscultation. Gastrointestinal: Abdomen was soft, nontender, nondistended. Bowel sounds are positive. His lower extremity dressing is overlying. He has a superficial ulceration just underneath in the kind of prepuce area, but right beneath the glans penis on the lateral side, left lateral, also kind of volar aspect or inferior aspect. LABORATORY DATA: White count 8, hemoglobin and hematocrit of 7.8 and 26, platelets 363,000. Basic was normal. PROBLEM LIST: 1. Foot gangrene, status post above-knee amputation. I think he is continuing to improve. No major issues. 2. Staphylococcus saprophyticus infection, cellulitis, ulceration. It is sensitive to tetracycline, and he has been placed on doxycycline and seems to be doing okay. The lesion seems to be drying out. 3. End-stage renal. We will continue dialysis. 4. Anemia of chronic inflammation is stabilizing. DISPOSITION: Pending clinical status, but anticipate discharge soon at the discretion of Surgery. cc: Carlo Nunn MD
[2019-08-28] MEDS: DILAUDID ONE (17:19)
--- NOTE | 2019-08-28 18:30 | PROVIDER PROGRESS NOTE ---
Progress Note Subjective: he voices no complaints. He denies shortness of breath, chest pain, nausea and vomiting, or decreased appetite. He says his pain has been adequately controlled at the moment. Objective: vitals. Temperature 98.9, pulse 60, respirations 18, blood pressure 121/30, 02 sat 100% on room air. General: elderly -[place] male lying in bed in no acute distress. HEENT: normocephalic, atraumatic, conjunctiva pale. Pupils equal and reactive. Mucous membranes dry. Trachea midline. Skin: warm and dry. Neck: supple, 6cm JVD observed Cardiovascular: S1, S2. Regular rate and rhythm with a soft systolic murmur. No gallop noted. Respiratory: clear bilaterally with equal air entry anteriorly Abdomen: soft, nontender, nondistended. Positive bowel sounds. : none inspected Extremities: Bilateral a.k.a.. Dressing in place to left stump. Neurological:Alert, oriented to person and place. Labs: WBC 8.09, hemoglobin 7.8, hematocrit 26.8, platelet count 363, sodium 137, potassium 3.6, chloride 95, carbon dioxide 27, BUN 22, creatinine 5.6. Intake 440, output zero. Impression: Chronic kidney disease stage 5D. He will have his routine hemodialysis today to get him back on schedule. With his low intake and labs we will attempt to pull 500ml. Blood pressure. Stable. Fluid volume. Euvolemic on exam. Anemia. Stable. Electrolytes. Stable. Acid base balance. Improving. Nutrition. Adequate. Medication review. Doxycycline started for penile ulcer with positive blood cultures.
--- NOTE | 2019-08-28 20:50 | GENERAL SURGERY PROGRESS NOTE ---
DATE: 08/28/2019 SUBJECTIVE: The patient is doing okay. No new complaints. OBJECTIVE: Vital Signs: He is afebrile. Vital signs are stable. General: He is awake and alert, in no acute distress. Extremities: The left AKA stump was examined. The incision is clean, dry, and intact. No erythema or drainage. Only mild edema. ASSESSMENT AND PLAN: A 59-year-old male status post left above-knee amputation. It is healing appropriately. We are awaiting rehab placement. cc: Jeff Shannon MD
[2019-08-28] MEDS: LIPITOR PO SCH (21:53)
[2019-08-28] MEDS: PROTONIX PO SCH (21:54)
[2019-08-28] MEDS: ASPIRIN PO SCH (21:54)
[2019-08-28] MEDS: TENORMIN PO SCH (21:55)
[2019-08-29] MEDS: DILAUDID IV PRN ×4 (03:57→19:59)
[2019-08-29 06:40] LABS: CALCIUM 9.1 mg/dL (8.8-10.2); CREATININE 4.7 mg/dL (0.7-1.2); POTASSIUM 4.2 mmol/L (3.5-5.1)
[2019-08-29] MEDS: BACTROBAN OINTMENT TOP SCH ×2 (08:22→20:10)
[2019-08-29] MEDS: DOXYCYCLINE PO SCH ×2 (08:22→20:01)
[2019-08-29] MEDS: NORVASC PO SCH (08:22)
[2019-08-29] MEDS: DEPAKOTE PO SCH ×3 (08:22→20:01)
[2019-08-29] MEDS: NEURONTIN PO SCH ×2 (08:23→20:10)
[2019-08-29] MEDS: ALPHAGAN 0.2% OPHTH SOLN BOTH EYES SCH ×2 (08:23→20:02)
[2019-08-29] MEDS: NORCO-7.5 PO PRN (08:23)
[2019-08-29] MEDS: ROBAXIN PO SCH ×3 (08:23→17:44)
[2019-08-29] MEDS: HEPARIN SUBQ SCH ×2 (08:23→20:02)
[2019-08-29] MEDS ORDERED: RETACRIT (ESRD PATIENTS) SUBQ ONE (11:01)
--- NOTE | 2019-08-29 19:35 | NEPHROLOGY PROGRESS NOTE ---
DATE: 08/29/2019 SUBJECTIVE: He is still complaining of pain. No shortness of breath, nausea or vomiting. He did not really eat his breakfast. OBJECTIVE: Vital Signs: Blood pressure 132/54, heart rate 57, respirations 16, afebrile. General: No acute distress. Skin: Warm and dry. Neck: Veins are not appreciated. Heart: Regular with gallop. Lungs: Equal. No crackles. Abdomen: Soft, flat, nontender. Extremities: No edema, clubbing or cyanosis. Wounds are not examined. IMPRESSION: 1. Chronic kidney disease 5D. He will have his next routine hemodialysis treatment tomorrow. Electrolytes/acid base/volume status all on target. 2. Anemia. Hemoglobin is below target but stable. B12 and folate are in target. We will check iron stores. Transfuse if hemoglobin below 7. cc: Burke Lopez MD
[2019-08-29] MEDS: LIPITOR PO SCH (20:01)
[2019-08-29] MEDS: PROTONIX PO SCH (20:01)
[2019-08-29] MEDS: ASPIRIN PO SCH (20:01)
[2019-08-29] MEDS: TENORMIN PO SCH (20:02)
--- NOTE | 2019-08-29 20:10 | PROGRESS NOTE ---
DATE: 08/29/2019 SUBJECTIVE: The patient has no major complaints except for pain. OBJECTIVE: Blood pressure 127/51, heart rate 58, respiratory rate 18, temperature 98 degrees, 98% on room air.Cardiovascular: Regular rate and rhythm. Pulmonary: Bilateral breath sounds, clear to auscultation. GI was soft, nontender, nondistended. Bowel sounds are positive. His penile lesion is dry, no longer mucopurulent. LABORATORY DATA: Creatinine 4.7, really no other major data. ASSESSMENT AND PLAN: 1. Gangrenous foot ulcer, status post above-knee amputation. We will continue to monitor. Surgery is following. 2. Staphylococcus saprophyticus cellulitis and ulceration. He is currently on doxycycline and is improving. We will treat for a week to 10 days. 3. Endstage renal. He is on dialysis per Dr. Lopez. 4. Disposition: We are looking at rehab options, but [facility] so we are waiting on rehab options there. cc: Carlo Nunn MD
[2019-08-30] MEDS: DILAUDID IV PRN ×3 (01:13→13:23)
[2019-08-30] MEDS: NORCO-7.5 PO PRN ×3 (04:56→22:36)
[2019-08-30] MEDS ORDERED: NS 2,000 ML MISC PRN (07:00)
[2019-08-30] MEDS ORDERED: TIGHT: 0.2 ML/HR FOR DIALYSIS MISC PRN (07:00)
[2019-08-30] MEDS ORDERED: HEPARIN IV PRN (07:00)
[2019-08-30] MEDS ORDERED: XYLOCAINE-MPF 1% INJ ONE (07:01)
[2019-08-30 07:40] LABS: HEMATOCRIT 26.1 % (42.0-52.0); HEMOGLOBIN 7.3 g/dL (14.0-18.0); MCH 25.9 PG (27-31); MCV 92.6 FL (81-99); MPV 8.7 FL (7.4-10.4); RBC 2.82 XMIL (4.7-6.1); RDW 16.4 % (11.5-14.5); WBC 7.75 X1000 (4.8-10.8)
[2019-08-30 07:45] LABS: ALBUMIN 2.7 g/dL (3.5-5.0); CALCIUM 9.3 mg/dL (8.8-10.2); CREATININE 6.6 mg/dL (0.7-1.2); PHOSPHORUS 5.4 mg/dL (2.7-4.5); POTASSIUM 3.9 mmol/L (3.5-5.1)
[2019-08-30] MEDS: NEURONTIN PO SCH ×2 (13:06→21:08)
[2019-08-30] MEDS: ALPHAGAN 0.2% OPHTH SOLN BOTH EYES SCH ×3 (13:06→21:08)
[2019-08-30] MEDS: ROBAXIN PO SCH ×4 (13:06→18:21)
[2019-08-30] MEDS: BACTROBAN OINTMENT TOP SCH ×2 (13:07→21:08)
[2019-08-30] MEDS: DOXYCYCLINE PO SCH ×2 (13:07→21:08)
[2019-08-30] MEDS: DEPAKOTE PO SCH ×3 (13:08→21:08)
[2019-08-30] MEDS: HEPARIN SUBQ SCH ×3 (13:08→21:08)
[2019-08-30] MEDS: NORVASC PO SCH (14:26)
--- NOTE | 2019-08-30 15:42 | PROGRESS NOTE ---
DATE: 08/30/2019 SUBJECTIVE: Patient has no major complaints. He looks pretty good today. OBJECTIVE: Blood pressure 117/40, heart rate 63, respiratory 16, temperature 98.4 degrees, 100% saturation on room air.Cardiovascular: Regular rate and rhythm. Pulmonary: Bilateral breath sounds clear to auscultation. GI: Soft, nontender, nondistended. Bowel sounds are positive. Hemoglobin and hematocrit 7 and 26, but it has been stable for the last 3 to 4 days. No white count. Rest of his labs look good. Iron is a little bit on the low side. His sat, though, is 21. His iron binding sat though is 88. Albumin is 2.6. PROBLEM LIST: 1. Gangrenous foot ulcer with PVD, so he is status post AKA. 2. Staph saprophyticus infection on penile cellulitis and ulceration. He is on doxy. This is day 3 treatment. 3. End-stage renal disease. He is on dialysis. We will continue to follow. DISPOSITION: Looking at rehab options when stable and this is in the works. cc: Carlo Nunn MD
--- NOTE | 2019-08-30 15:51 | NEPHROLOGY PROGRESS NOTE ---
DATE: 08/30/2019 SUBJECTIVE: No new complaints. He is currently receiving dialysis. OBJECTIVE: Vital Signs: Blood pressure 139/50, heart rate 56, afebrile. General: No acute distress. Skin: Is warm and dry. Neck: Veins are not distended. Cardiovascular: Heart is regular. Extremities: With no edema. IMPRESSION: CKD 5D. He is currently receiving hemodialysis. A 3 K bath. Goal of 1 to 2 L ultrafiltration. Hemoglobin remains low but has not yet met criteria for transfusion. Consider this next week. cc: Burke Lopez MD
[2019-08-30] MEDS: LIPITOR PO SCH (21:08)
[2019-08-30] MEDS: ASPIRIN PO SCH (21:08)
[2019-08-30] MEDS: TENORMIN PO SCH (21:08)
[2019-08-30] MEDS: PROTONIX PO SCH (21:08)
[2019-08-31] MEDS: DILAUDID IV PRN ×4 (02:07→21:57)
[2019-08-31] MEDS: NEURONTIN PO SCH ×2 (09:33→21:43)
[2019-08-31] MEDS: HEPARIN SUBQ SCH ×2 (09:34→21:44)
[2019-08-31] MEDS: ALPHAGAN 0.2% OPHTH SOLN BOTH EYES SCH ×2 (09:34→21:42)
[2019-08-31] MEDS: DOXYCYCLINE PO SCH ×2 (09:34→21:43)
[2019-08-31] MEDS: ROBAXIN PO SCH ×3 (09:35→16:40)
[2019-08-31] MEDS: NORVASC PO SCH (09:35)
[2019-08-31] MEDS: DEPAKOTE PO SCH ×3 (09:35→21:43)
[2019-08-31] MEDS: BACTROBAN OINTMENT TOP SCH ×2 (10:00→21:45)
[2019-08-31] MEDS: NORCO-7.5 PO PRN (17:18)
--- NOTE | 2019-08-31 17:35 | PROGRESS NOTE ---
DATE: 08/31/2019 SUBJECTIVE: Patient has no major complaints. OBJECTIVE: Blood pressure 164/54, heart rate of 59, respiratory rate 20 temperature 93 degrees, 98% on room air.Cardiovascular: Regular rate and rhythm. Pulmonary: Bilateral breath sounds clear to auscultation. GI: Soft, not tender nondistended. Bowel sounds are positive. LABORATORY DATA: White count 7, hemoglobin and hematocrit 7 and 26, platelets of 400,000. Creatinine is 6.6. Iron is 24, saturations 21%. PROBLEM LIST: 1. Gangrene of foot, status post [id number]. We will continue physical therapy and wound care. He seems to be doing okay from that standpoint. 2. Penile cellulitis with staphylococcal saprophyticus. He is on doxycycline. This will be day 4. We will do a total of 7 to 10 days pending his clinical improvement. 3. Hypertension, does not look to be completely controlled. He is on Norvasc. He is on to Tenormin, atenolol. We may need to start some hydralazine. DISPOSITION: He is also going to need rehab so we are looking into those options, but he is a or [facility] benefits, so we are looking at those options as well. cc: Carlo Nunn MD
[2019-08-31] MEDS: APRESOLINE PO SCH (21:43)
[2019-08-31] MEDS: TENORMIN PO SCH (21:43)
[2019-08-31] MEDS: ASPIRIN PO SCH (21:44)
[2019-08-31] MEDS: PROTONIX PO SCH (21:44)
[2019-08-31] MEDS: LIPITOR PO SCH (21:45)
[2019-09-01] MEDS: NORCO-7.5 PO PRN (01:55)
[2019-09-01] MEDS: DILAUDID IV PRN ×5 (02:42→22:21)
[2019-09-01] MEDS: APRESOLINE PO SCH ×3 (06:11→20:51)
[2019-09-01] MEDS: NEURONTIN PO SCH ×2 (08:56→20:51)
[2019-09-01] MEDS: ROBAXIN PO SCH ×3 (08:56→18:11)
[2019-09-01] MEDS: DOXYCYCLINE PO SCH ×2 (08:56→20:51)
[2019-09-01] MEDS: DEPAKOTE PO SCH ×3 (08:57→20:51)
[2019-09-01] MEDS: NORVASC PO SCH (08:57)
[2019-09-01] MEDS: HEPARIN SUBQ SCH ×2 (08:57→20:50)
[2019-09-01] MEDS: ALPHAGAN 0.2% OPHTH SOLN BOTH EYES SCH ×2 (08:57→20:50)
[2019-09-01] MEDS: BACTROBAN OINTMENT TOP SCH ×2 (09:07→20:50)
--- NOTE | 2019-09-01 14:53 | PROGRESS NOTE ---
DATE: 09/01/2019 SUBJECTIVE: Patient has no major complaints. OBJECTIVE: Blood pressure 126/50, heart rate 85, respiratory rate 19, temperature 97.6 degrees, 100% on room air. Cardiovascular: Regular rate and rhythm. Pulmonary: Bilateral breath sounds clear to auscultation. GI: Soft, nontender, nondistended. Bowel sounds were positive. PROBLEM LIST: 1. Gangrenous foot with severe peripheral arterial disease, status post above knee amputation. Continue physical therapy and wound care. 2. Penile cellulitis. We will continue doxycycline. This is day 5 of 10. 3. Hypertension. Looks a little better. We will continue hydralazine. 4. Disposition. Waiting on rehab options and follow. 5. End-stage renal. We will continue treatment and monitor. cc: Carlo Nunn MD
--- NOTE | 2019-09-01 16:21 | PROVIDER PROGRESS NOTE ---
Progress Note Subjective: He denies any nausea and vomiting, chest pain, shortness of breath. Hes encouraged to eat. He voices adequate pain control. Objective: vitals. Temperature 98.0, pulse 54, respirations 18, blood pressure 140/53, O2 sat 100% on room air. General: elderly -Tog[place]ese male lying in bed in no acute distress. HEENT: normocephalic, atraumatic, conjunctiva pale. Pupils equal and reactive. Mucous membranes dry. Trachea midline. Skin: warm and dry. Neck: supple, 6cm JVD observed Cardiovascular: S1, S2. Regular rate and rhythm with a soft systolic murmur. No gallop noted. Respiratory: clear bilaterally with equal air entry anteriorly Abdomen: soft, nontender, nondistended. Positive bowel sounds. : none inspected Extremities: Bilateral a.k.a.. Dressing in place to left stump. Neurological:Alert, oriented to person and place. Labs: intake 240, output zero. Impression: Chronic kidney disease stage 5D. He will have his routine hemodialysis tomorrow. He has been stable over the weekend. Blood pressure. In target. Fluid volume. Euvolemic on exam. Anemia. Stable on last labs. Electrolytes. Stable on last labs. Acid base balance. Improving on last labs. Nutrition. Adequate. Medication review. Hydralazine started yesterday.
--- NOTE | 2019-09-01 18:35 | Diag Imaging Result Doc PS360 ---
EXAM: US RENAL 2 (RETROPER) COMPLETE INDICATION: decreased renal function TECHNIQUE: COMPARISON: None. FINDINGS: The left kidney cannot be identified by the sales planner. The right kidney is markedly echogenic, which is expected in a patient with stage IV renal insufficiency on long-term dialysis. There are multiple simple appearing cysts associated with the right kidney. No solid renal masses appreciated. The right kidney measures up to 8.5 cm in the greatest dimension. The bladder is completely nondistended. IMPRESSION: 1.Nonvisualization of the left kidney. 2.Markedly echogenic right kidney, which is expected in a patient with long-term stage IV renal insufficiency. 3.Multiple small right renal cysts. Electronically signed by Damion Ramirez 09/01/2019 6:33 PM
[2019-09-01] MEDS: TENORMIN PO SCH (20:51)
[2019-09-01] MEDS: LIPITOR PO SCH (20:51)
[2019-09-01] MEDS: PROTONIX PO SCH (20:52)
[2019-09-01] MEDS: ASPIRIN PO SCH (20:52)
[2019-09-02] MEDS: DILAUDID IV PRN ×2 (02:00→17:16)
[2019-09-02] MEDS: NORCO-7.5 PO PRN ×2 (04:54→08:52)
[2019-09-02] MEDS: APRESOLINE PO SCH ×4 (04:54→23:16)
[2019-09-02 05:35] LABS: ALBUMIN 2.3 g/dL (3.5-5.0); CALCIUM 9.3 mg/dL (8.8-10.2); POTASSIUM 4.2 mmol/L (3.5-5.1)
[2019-09-02 05:47] LABS: CREATININE 8.3 mg/dL (0.7-1.2)
[2019-09-02] MEDS ORDERED: NS 2,000 ML MISC PRN (06:13)
[2019-09-02] MEDS ORDERED: HEPARIN IV PRN (06:13)
[2019-09-02] MEDS ORDERED: TIGHT: 0.2 ML/HR FOR DIALYSIS MISC PRN (06:13)
[2019-09-02 08:05] LABS: HEMATOCRIT 25.2 % (42.0-52.0); HEMOGLOBIN 7.4 g/dL (14.0-18.0); MCH 26.5 PG (27-31); MCHC 29.4 g/dL (33-37); MCV 90.3 FL (81-99); MPV 8.8 FL (7.4-10.4); RBC 2.79 XMIL (4.7-6.1); RDW 16.6 % (11.5-14.5); WBC 7.34 X1000 (4.8-10.8)
[2019-09-02] MEDS: NEURONTIN PO SCH ×2 (08:47→23:16)
[2019-09-02] MEDS: ROBAXIN PO SCH ×3 (08:47→17:16)
[2019-09-02] MEDS: DEPAKOTE PO SCH ×3 (08:47→23:16)
[2019-09-02] MEDS: DOXYCYCLINE PO SCH ×2 (08:47→23:15)
[2019-09-02] MEDS: NORVASC PO SCH (08:47)
[2019-09-02] MEDS: ALPHAGAN 0.2% OPHTH SOLN BOTH EYES SCH ×2 (08:47→23:24)
[2019-09-02] MEDS: HEPARIN SUBQ SCH ×2 (08:48→23:16)
[2019-09-02] MEDS: BACTROBAN OINTMENT TOP SCH ×2 (09:00→23:24)
--- NOTE | 2019-09-02 14:13 | ECHO REPORT ---
ORDER DATE: 09/01/2019 INTERPRETING PHYSICIAN: Hector Joshi MD. ECHOCARDIOGRAPHIC MEASUREMENTS: Interventricular septum: 1.1 cm. Left ventricular posterior wall: 1.1 cm. Diastolic diameter: 4.5 cm. Right ventricle: 4.1 cm. Aorta: 2.5 cm. SUMMARY OF THE 2-DIMENSIONAL IMAGIN. Aortic valve leaflets are trileaflet. 2. Pulmonic valve was normal. 3. Tricuspid valve was normal. 4. Mitral valve was normal. There is mild mitral annular calcification. 5. There is mild mitral regurgitation, mild tricuspid regurgitation. 6. Peak velocity across the tricuspid valve was 2.8 m/sec. 7. Peak velocity across the aortic valve less than 2 meters per second. 8. There is no aortic stenosis. 9. There is mild aortic regurgitation. 10.Normal left ventricular cavity size. 11.Estimated ejection fraction of 55%. 12.There is no pericardial effusion or obvious intracardiac mass or thrombus seen. 13.Normal right ventricular cavity size and function. 14.Pulmonary artery systolic pressure of 38 mmHg. cc: MD Mallika Mckinnon CRNP
--- NOTE | 2019-09-02 14:24 | PROGRESS NOTE ---
DATE: 09/02/2019 SUBJECTIVE: The patient has no major complaints. OBJECTIVE: Vital Signs: Blood pressure 107/33, heart rate of 55, temp 98.1 degrees, respiratory rate of 18. Cardiovascular: Regular rate and rhythm. Pulmonary: Bilateral breath sounds. Clear to auscultation. GI: Soft, nontender, nondistended. Bowel sounds were positive. PROBLEM LIST: 1. Gangrenous foot, status post above-knee amputation. Continue physical therapy, wound care. We will continue to monitor. 2. Cellulitis of the penis with positive culture for Staphylococcal saprophyticus. He is on day 6 of doxycycline. 3. Hypertension is stable on current medications. 4. End-stage renal. He is getting dialyzed today. 5. Disposition. I anticipate discharge soon. From my standpoint, he is ready for rehab whenever a bed is available, so we will continue to follow. cc: Carlo Nunn MD
--- NOTE | 2019-09-02 18:45 | PROVIDER PROGRESS NOTE ---
Progress Note Subjective: he denies nausea and vomiting, chest pain, shortness of breath, or decrease in appetite. He is saying his pain is adequately controlled. Objective: vitals. Temperature 98.7, pulse 63, respirations 18, blood pressure 114/45, 100% on room air General: elderly -[place]ub[place] male lying in bed in no acute distress. HEENT: normocephalic, atraumatic, conjunctiva pale. Pupils equal and reactive. Mucous membranes dry. Trachea midline. Skin: warm and dry. Neck: supple, no JVD observed in upright position Cardiovascular: S1, S2. Regular rate and rhythm with a soft systolic murmur. No gallop noted. Respiratory: clear bilaterally with equal air entry anteriorly Abdomen: soft, nontender, nondistended. Positive bowel sounds. : none inspected Extremities: Bilateral a.k.a.. Dressing in place to left stump. Neurological:Alert, oriented to person and place. Labs: intake 100, output zero. WBC 7.34, hemoglobin 7.4, hematocrit 25.2, platelet count 420, sodium 132, potassium 4.2, chloride 97, carbon dioxide 20, BUN 46, creatinine 8.3, albumin 2.3. Impression: Chronic kidney disease stage 5D. He will have his routine hemodialysis today with a 2 K bath and attempt to pull to his dry weight which has been adjusted since his recent amputation. Blood pressure. In target. Fluid volume. Euvolemic on exam. Anemia. Stable. Iron deficient. Add Venofer. Dose with HARPREET weekly. rg Electrolytes. Stable. Acid base balance. corrections made with hemodialysis. Nutrition. Encouraged to eat and drink. Medication review. No changes
[2019-09-02] MEDS ORDERED: RETACRIT (ESRD PATIENTS) SUBQ ONE (18:46)
[2019-09-02] MEDS: TENORMIN PO SCH (23:15)
[2019-09-02] MEDS: ASPIRIN PO SCH (23:16)
[2019-09-02] MEDS: LIPITOR PO SCH (23:16)
[2019-09-02] MEDS: PROTONIX PO SCH (23:16)
[2019-09-03] MEDS: NORCO-7.5 PO PRN ×3 (02:36→23:47)
[2019-09-03] MEDS: APRESOLINE PO SCH ×3 (06:17→20:27)
[2019-09-03] MEDS: NORVASC PO SCH (09:38)
[2019-09-03] MEDS: ALPHAGAN 0.2% OPHTH SOLN BOTH EYES SCH ×2 (09:38→20:26)
[2019-09-03] MEDS: DOXYCYCLINE PO SCH ×2 (09:38→20:27)
[2019-09-03] MEDS: HEPARIN SUBQ SCH ×2 (09:38→20:28)
[2019-09-03] MEDS: NEURONTIN PO SCH ×2 (09:38→20:27)
[2019-09-03] MEDS: DEPAKOTE PO SCH ×3 (09:38→20:27)
[2019-09-03] MEDS: BACTROBAN OINTMENT TOP SCH ×2 (09:38→20:26)
[2019-09-03] MEDS: ROBAXIN PO SCH ×3 (09:38→18:48)
[2019-09-03] MEDS: VENOFER 200 MG in NS 150 ML IV SCH (09:39)
--- NOTE | 2019-09-03 14:11 | PROVIDER PROGRESS NOTE ---
Progress Note Subjective: He voices having an episode of diaphoresis during the night without chest pain, shortness of breath, or feelings of impending doom. Objective: vitals. Temperature 98.3, pulse 67, respirations 14, blood pressure 111/39, O2 sat 100% on room air. General: elderly -Northern Irish male lying in bed in no acute distress. HEENT: normocephalic, atraumatic, conjunctiva pale. Pupils equal and reactive. Mucous membranes dry. Trachea midline. Skin: warm and dry. Neck: supple, no JVD observed. Cardiovascular: S1, S2. Regular rate and rhythm with a soft systolic murmur. No gallop noted. Respiratory: clear bilaterally with equal air entry anteriorly Abdomen: soft, nontender, nondistended. Positive bowel sounds. : none inspected Extremities: Bilateral a.k.a.. Dressing in place to left stump. Left upper arm dialysis access. Neurological:Alert, oriented to person and place. Labs: intake 0, output 286 Impression: Chronic kidney disease stage 5D. He had hemodialysis yesterday with a 286ml ultrafiltration. Tolerated well. He is planning on discharging to a SNF in [place] tomorrow after dialysis. Blood pressure. In target. Fluid volume. Euvolemic on exam. Anemia. Stable. Electrolytes. Stable. Acid base balance. Stable. Nutrition. Encouraged to eat and drink. His diaphoresis was likely a hypoglycemic event. Medication review. No changes Diaphoresis. ?hypoglycemia? monitor.
[2019-09-03] MEDS: PROTONIX PO SCH (20:27)
[2019-09-03] MEDS: LIPITOR PO SCH (20:27)
[2019-09-03] MEDS: TENORMIN PO SCH (20:27)
[2019-09-03] MEDS: ASPIRIN PO SCH (20:27)
[2019-09-04] MEDS: APRESOLINE PO SCH (04:51)
[2019-09-04] MEDS ORDERED: HEPARIN IV PRN (06:06)
[2019-09-04] MEDS ORDERED: TIGHT: 0.2 ML/HR FOR DIALYSIS MISC PRN (06:06)
[2019-09-04] MEDS ORDERED: NS 2,000 ML MISC PRN (06:06)
[2019-09-04] MEDS: EMLA CREAM TOP PRN (08:00)
[2019-09-04 10:03] LABS: HEMATOCRIT 25.3 % (42.0-52.0); HEMOGLOBIN 7.5 g/dL (14.0-18.0); MCHC 29.6 g/dL (33-37); MPV 8.9 FL (7.4-10.4); RBC 2.78 XMIL (4.7-6.1); RDW 17.2 % (11.5-14.5); WBC 6.76 X1000 (4.8-10.8)
--- NOTE | 2019-09-04 10:22 | DISCHARGE SUMMARY ---
ADMISSION DATE: 08/15/2019 DISCHARGE DATE: 09/04/2019 DIAGNOSES: 1. Gangrenous ulcer, left foot, growing Enterococcus faecalis and Morganella morganii, status post left [id number] amputation, 08/25/2019. 2. Cellulitis of the penis with a positive culture, staphylococcal saprophyticus, on day 8 of doxycycline. 3. Hypertension, which is stable. 4. End-stage renal disease 5D on Sunday, , Sunday hemodialysis. 5. Iron-deficiency anemia. CONSULTANTS: 1. Dr. Burke Lopez, Nephrology. 2. Dr. Jeff Shannon, General Surgery. DIAGNOSTICS: 1. On 08/15/2019, chest x-ray revealed no acute disease. 2. On 08/15/2019, left foot x-ray revealed no definite evidence of osteomyelitis. 3. On 08/18/2019, left leg arterial Doppler study revealed extensive peripheral vascular disease, likely originating more proximally. If the patient has a left foot wound, he likely has poor potential for healing. The patient may benefit from CT angiography. 4. On 08/19/2019, CT angiogram aorta with runoff: Stenosis of the left proximal superficial femoral artery, stenosis of the left popliteal artery, very poor distal runoff with dense calcification of the vessels. 5. Renal ultrasound with nonvisualization of the left kidney, markedly echogenic right kidney, which is expected, with long-term stage IV renal insufficiency, multiple small renal cysts. MICROBIOLOGY: 1. Penile wound is growing Staphylococcus saprophyticus. 2. Left foot wound: Enterococcus faecalis and Morganella morganii. HOSPITAL COURSE: Mr. Masterson presented to the hospital complaining of a left foot infection that had began to swell, had a foul odor and drainage, which ultimately grew out enterococcus and Morganella morganii. He was initially placed on vancomycin and Zosyn, which were renally dosed. He was evaluated by Dr. Jeff Shannon. Arterial studies were performed, as well as an aorta with runoff. It was felt that this foot would not heal due to the amount of disease. They did offer amputation to the patient. He did refuse at that time. Therefore, he underwent debridement of skin and subcu tissue, fascia, less than 20 square cm of the left foot. Due to the extensive necrosis, it was discussed with the patient that he would benefit from BKA or AKA, and on 08/25/2019, he underwent a left [id number] amputation, for which he has tolerated well. Incision is clean, dry, and intact with no drainage. He was followed by Dr. Lopez of Nephrology, who continued his Sunday, , Sunday hemodialysis schedule. He was found to have a penile ulcer. Cultures returned with Staphylococcus saprophyticus, for which he has been on doxycycline. Today will be day 8. He will need 6 more days of medication. DISCHARGE PHYSICAL EXAMINATION: Vital Signs: Blood pressure is 105/30, with a heart rate of 54, respirations 18, temperature 97.8 degrees, with room air sats 98% to 100%. General: This is a 59- year-old gentleman who is sitting up in the bed in no distress. Family members are present. HEENT: Head is normocephalic, atraumatic. Pupils are equal, round, react to light. EOMs are intact. Mucous membranes are dry. Neck: Trachea is midline with neck supple. Cardiovascular: Regular rate and rhythm. S1 and S2 appreciated. He does have a 1/6 systolic murmur. Pulmonary: Breath sounds are clear. No increased work of breathing noted. Chest rises and falls symmetric with respiration. Chest wall is nontender to palpation. Gastrointestinal: Abdomen is soft, nontender, nondistended, with bowel sounds in all 4 quadrants. Neurologic: He is alert and oriented x3. Skin: Warm and dry. Extremities: Bilateral AKA is noted with dressing that is dry and intact to the left stump. DISCHARGE MEDICATIONS: 1. Seroquel 25 mg p.o. at bedtime p.r.n. insomnia. 2. Neurontin 100 mg p.o. b.i.d. 3. Doxycycline 100 mg p.o. b.i.d. x6 days. 4. Alphagan 0.2% ophthalmic solution. 5. Norvasc 10 mg p.o. daily. 6. Tylenol 650 mg every 6 hours p.r.n. 7. Protonix 40 mg p.o. at bedtime. 8. Depakote 125 mg p.o. t.i.d. 9. Alphagan 0.2% ophthalmic solution 1 drop to both eyes b.i.d. 10. Lipitor 80 mg p.o. at bedtime. 11. Atenolol 25 mg p.o. at bedtime. 12. Aspirin 81 mg p.o. at bedtime FOLLOWUP: 1. Dr. Jeff Shannon. 2. Dr. Burke Lopez to continue his Sunday, , Sunday hemodialysis schedule. Follow up with Dr. Lopez at already scheduled appointment. DISPOSITION: He is being discharged in transfer to rehab in stable condition. TIME SPENT: This is a greater than 30-minute discharge. Dictated by YOVANNY Rivera for Nasim Mackay MD cc: YOVANNY Rivera MD
[2019-09-04 10:57] LABS: ALBUMIN 2.6 g/dL (3.5-5.0); CALCIUM 8.9 mg/dL (8.8-10.2); PHOSPHORUS 3.3 mg/dL (2.7-4.5); POTASSIUM 3.4 mmol/L (3.5-5.1)
[2019-09-04 10:58] LABS: CREATININE 5.4 mg/dL (0.7-1.2)
[2019-09-04] MEDS: VENOFER 200 MG in NS 150 ML IV SCH (12:30)
[2019-09-04] MEDS ORDERED: NS 500 ML IV SCH (13:00)
[2019-09-04] MEDS: DEPAKOTE PO SCH ×2 (14:34→14:35)
[2019-09-04] MEDS: HEPARIN SUBQ SCH (14:36)
[2019-09-04] MEDS: BACTROBAN OINTMENT TOP SCH (14:37)
[2019-09-04] MEDS: DOXYCYCLINE PO SCH (14:37)
[2019-09-04] MEDS: ALPHAGAN 0.2% OPHTH SOLN BOTH EYES SCH (14:38)
[2019-09-04] MEDS: NORVASC PO SCH (14:39)
[2019-09-04] MEDS: ROBAXIN PO SCH (14:40)
[2019-09-04] MEDS: NEURONTIN PO SCH (14:51)
--- NOTE | 2019-09-04 15:11 | PROVIDER PROGRESS NOTE ---
Progress Note Subjective: he denies any uremic complaints. Objective: vitals. Temperature 97.8, pulse 54, respirations 16, blood pressure 105/30, O2 sat 100% on room air. General: elderly -Gibralt[place] male lying in bed in no acute distress. HEENT: normocephalic, atraumatic, conjunctiva pale. Pupils equal and reactive. Mucous membranes dry. Trachea midline. Skin: warm and dry. Neck: supple, no JVD observed. Cardiovascular: S1, S2. Regular rate and rhythm with a soft systolic murmur. No gallop noted. Respiratory: clear bilaterally with equal air entry anteriorly Abdomen: soft, nontender, nondistended. Positive bowel sounds. : none inspected Extremities: Bilateral a.k.a.. Dressing in place to left stump. Left upper arm dialysis access. Neurological:Alert, oriented to person and place. Labs: intake 870, output 0 Impression: Chronic kidney disease stage 5D. He Will have his routine hemodialysis treatment with a 2K bath and plan for ultrafiltration to last post dialysis weight. He plans to discharge to the [facility] after treatment. Blood pressure. In target. Fluid volume. Euvolemic on exam. Anemia. Low. We will transfuse 1 unit PRBCs while he is on dialysis today. Electrolytes. Stable. Acid base balance. Stable. Nutrition. Encouraged to eat and drink. Medication review. No changes
[2019-09-04 19:43] VITALS: BP 110/40
--- NOTE | 2019-09-05 09:13 | DISCHARGE SUMMARY ---
ADMISSION DATE: 08/15/2019 DISCHARGE DATE: 09/04/2019 ADDENDUM REPORT: I agree with most components of discharge summary mentioned in nurse practitioner's note. I evaluated the patient in dialysis room. Mr. Masterson denies any chest pain, shortness of breath, cough. He denies any nausea or vomiting. He still has a poor appetite. He denies undue pain at left lower extremity amputation site. We discussed about completing antibiotic for the penile ulcer. We also discussed about peripheral artery disease possibly affecting penis and following up with DR. Shannon. VITAL SIGNS: His vitals today, temperature 97.8 degrees pulse 54, respiratory 18, blood pressure 105/30, saturating 100% on room air. PHYSICAL EXAMINATION: General: He is not in acute distress. HEENT: Oral cavity is moist. Lungs: Air entry bilaterally equal. No wheeze, rhonchi, crackles. Cardiovascular: S1, S2 normal. No murmur or gallop. Abdomen: Soft, nontender. He has about 1 x 1 cm superficial erosion of penis without any pus or erythema around it. Extremities: He has bilateral above- knee amputation. Left above-knee amputation has alessandra. The wound is healing well. There is no undue erythema or discharge. Neurologic: He is alert and oriented x3. DISCHARGE MEDICATION: 1. Aspirin 81 mg at nighttime. 2. Brimonidine ophthalmic solution b.i.d. 3. Atenolol 25 mg at nighttime. 4. Depakote 125 mg t.i.d. 5. Atorvastatin 80 mg at nighttime. 6. Amlodipine 10 mg daily. 7. Pantoprazole 40 mg at nighttime. 8. Seroquel 25 mg at nighttime as needed. 9. Ultracet 37.5 mg 325 mg tablet every 12 hours as needed,15 tablets have been prescribed. 10. Doxycycline 100 mg b.i.d. for 4 days for penile cellulitis. 11. Gabapentin 100 mg b.i.d., 15 days supply has been prescribed. 12. Tylenol 650 mg every 6 hours as needed. CURRENT LABORATORY: Hemoglobin 7.5, platelet 385,000. BUN 30, creatinine 5.4. He was advised to have followup with surgeon doctor, Dr. Shannon for staple removal and followup of the penile ulcers. He was also advised to follow up with regular physician for proper medication reconciliation within 2 weeks. He will be discharged to rehab. cc: Nasim Mackay MD
== END 2019-09-04 19:10 | DRG 239 ==
LOC: SUPCPDRO → ED 11:59 → SUATTDRO 16:19 → EDIPHOLD 16:19 → 1N 18:49
PROVIDERS: ATTEND Internal Medicine